=== PATIENT | male | born 1940 | race Caucasian/White ===

== ENCOUNTER 2019-08-02 10:12 | Inpatient (IN) | payer OTHER ==
[2019-08-02 10:47] LABS: Absolute Lymphocytes (CBC) 1.4 K/uL (0.7-4.9); Basophils % 0.7 % (0-1.3); Hematocrit 38.1 % (39.6-49.0); Lymphocytes % 21.4 % (15.3-44.8); MPV 9.1 fL (7.6-11.3); Protime INR 0.99; RBC Red Blood Cell Count 4.04 M/uL (4.33-5.43)
[2019-08-02 11:02] LABS: Albumin 3.2 g/dL (3.4-5.0); Bilirubin Direct 0.2 mg/dL (0-0.2); Bilirubin Total 0.6 mg/dL (0.2-1.0); Magnesium 2.3 mg/dL (1.8-2.4); Potassium 4.1 mmol/L (3.5-5.1); Protein, Total 7.1 g/dL (6.4-8.2); Troponin (Emerg Dept Use Only) 0.02 ng/mL (0.0-0.045)
--- NOTE | 2019-08-02 11:12 | RAD REPORT ---
EXAM DESCRIPTION: RAD - Chest Single View - 08/02/2019 10:58 am CLINICAL HISTORY: Left-sided chest pain COMPARISON: January 2012 chest film, January 2012 CT chest TECHNIQUE: AP portable chest image was obtained 1052 hours . FINDINGS: Lung volumes are very low. There is stranding in the left base was not present on prior im aging. Prior imaging showed large hiatal hernia with substantial portion of the stomach in the lower left chest. Patient could have progressive atelectasis or pneumonia in the left base. Heart size is similar to comparison. Fullness of the mediastinum not substantially different when ad justing for rotation. Mediastinum assessment is limited. No measurable pleural effusion and no pneumo thorax. No acute bony abnormality seen. No acute aortic findings suspected. IMPRESSION: Left base parenchymal stranding from atelectasis or pneumonia. Patient has history of large hiatal hernia with substantial amounts of stomach and bowel in the left lower pelvis. Low lung volumes limit left base assessment as well as mediastinum assessment.
[2019-08-02] MEDS ORDERED: ASPIRIN 81 MG CHEWABLE TABLET ONE (11:32)
[2019-08-02] MEDS ORDERED: NITROGLYCERIN 0.4 MG/TAB SL ONE (11:32)
--- NOTE | 2019-08-02 11:57 | EKG ---
Test Date: 2019-08-02 Test Time: 10:26:45 Web Architect: ESTHER MEASUREMENT RESULTS: Intervals: Rate: 55 AR: 236 QRSD: 136 QT: 452 QTc: 432 Pace: P: 40 AR: 236 QRS: -41 T: 106 INTERPRETIVE STATEMENTS: Sinus bradycardia with 1st degree AV block Left axis deviation Nonspecific intraventricular block T wave abnormality, consider lateral ischemia Abnormal ECG Compared to ECG 02/02/2012 06:45:04 First degree AV block now present Left-axis deviation now present T-wave abnormality now present Possible ischemia now present Sinus tachycardia no longer present Myocardial infarct finding no longer present Electronically Signed On 08-02-19 11:56:46 [employer] by Gilberto Harvey
--- NOTE | 2019-08-02 12:08 | ER ---
Nurse's Notes [facility] Name: Samuel Portillo Age: 78 yrs Sex: Male : 1940 Arrival Date: 08/02/2019 Time: 10:13 Bed 20 Private MD: Demond Gabriel C Diagnosis: Chest pain, unspecified Presentation: 08/02 10:15 Presenting complaint: Patient states: feels like he has indigestion, left side chest iw pain started this morning 0730, also c/o trouble breathing for past couple months, hx of CO with stent placement with Dr. Kraus. Transition of care: patient was not received from another setting of care. Onset of symptoms was August 02, 2019. Risk Assessment: Do you want to hurt yourself or someone else? Patient reports no desire to harm self or others. Initial Sepsis Screen: Does the patient meet any 2 criteria? No. Patient's initial sepsis screen is negative. Does the patient have a suspected source of infection? No. Patient's initial sepsis screen is negative. Care prior to arrival: None. 10:15 Method Of Arrival: Ambulatory iw 10:15 Acuity: WESLEY 2 iw Historical: - Allergies: 10:17 No Known Allergies; iw - PMHx: 10:17 Myocardial infarction; Hypertension; Hyperlipidemia; iw - PSHx: 10:17 left hip; Heart stents; iw - Immunization history:: Adult Immunizations not up to date. - Social history:: Smoking status: Patient/guardian denies using tobacco. - Ebola Screening: : Patient negative for fever greater than or equal to 101.5 degrees Fahrenheit, and additional compatible Ebola Virus Disease symptoms Patient denies exposure to infectious person Patient denies travel to an Ebola-affected area in the 21 days before illness onset No symptoms or risks identified at this time. - Family history:: not pertinent. - Hospitalizations: : No recent hospitalization is reported. Screenin:19 Abuse screen: Denies threats or abuse. Nutritional screening: No deficits noted. em Tuberculosis screening: No symptoms or risk factors identified. Fall Risk None identified. Assessment: 10:18 General: Appears in no apparent distress. comfortable, Behavior is calm, cooperative, em Denies fever. Pain: Complains of pain in chest Pain does not radiate. Pain began 4 hours ago. Neuro: Level of Consciousness is awake, alert, obeys commands, Oriented to person, place, time, situation, Appropriate for age. Cardiovascular: Reports chest pain, nausea, shortness of breath, Capillary refill < 3 seconds Patient's skin is warm and dry. Rhythm is sinus bradycardia with 1st degree heart block. Respiratory: Airway is patent Respiratory effort is even, unlabored, Respiratory pattern is regular, symmetrical, Denies cough. GI: Reports nausea. Derm: Skin is intact, is thin, Skin is dry, Skin is pink, Skin temperature is warm. Musculoskeletal: Capillary refill < 3 seconds, Range of motion: intact in all extremities. 13:17 Reassessment: Patient appears in no apparent distress at this time. Patient and/or em family updated on plan of care and expected duration. Pain level reassessed. Patient is alert, oriented x 3, equal unlabored respirations, skin warm/dry/pink. Patient states feeling better. Patient states symptoms have improved. 13:29 Reassessment: report called to SARITA Dominguez, reports room is not ready, will call when em room is available. Vital Signs: 10:18 BP 150 / 82; Pulse 50; Resp 16; Temp 97.4; Pulse Ox 100% on R/A; Weight 99.79 kg; iw Height 6 ft. 2 in. (187.96 cm); Pain 6/10; 11:01 BP 141 / 72; Pulse 49; Resp 18; Pulse Ox 99% on R/A; Pain 6/10; em 11:35 BP 134 / 74; Pulse 48; Resp 18; Pulse Ox 99% on R/A; Pain 6/10; em 13:18 BP 125 / 64; Pulse 46; Resp 18; Pulse Ox 99% on R/A; Pain 4/10; em 10:18 Body Mass Index 28.25 (99.79 kg, 187.96 cm) iw ED Course: 10:13 Patient arrived in ED. rg4 10:13 Demond Gabriel MD is Private Physician. rg4 10:16 Triage completed. iw 10:18 Rahul Jain MD is Attending Physician. rn 10:18 Patient maintains SpO2 saturation greater than 95% on room air. em 10:18 Arm band placed on. em 10:19 Kin Bansal LVN is Primary Nurse. em 10:19 Patient has correct armband on for positive identification. Placed in gown. Bed in low em position. Side rails up X2. Adult w/ patient. night monitor on. Pulse ox on. NIBP on. 10:32 Initial lab(s) drawn, by me, sent to lab. Inserted saline lock: 20 gauge in right em antecubital area, using aseptic technique. Blood collected. 10:33 EKG done, by camera repair technician. reviewed by Rahul Jain MD. at1 10:59 XRAY Chest (1 view) In Process Unspecified. EDMS 12:06 Demond Gabriel MD is Hospitalizing Provider. rn 12:30 called the clinical document improvement educator answering service to notify of the admission consult as eb requested by Dr. Gabriel. 13:19 No provider procedures requiring assistance completed. Patient admitted, IV remains in em place. Administered Medications: 11:39 Drug: Aspirin Chewable Tablet 324 mg Route: PO; em 12:20 Follow up: Response: No adverse reaction em 11:40 Drug: Nitroglycerin 0.4 mg Route: Sublingual; em 12:20 Follow up: Response: No adverse reaction; Pain is decreased em Outcome: 12:07 Decision to Hospitalize by Provider. rn 14:02 Admitted to Tele accompanied by tech, family with patient, via wheelchair, room 208, em with chart, Report called to SARITA Dominguez 14:02 Condition: good 14:02 Instructed on the need for admit, Demonstrated understanding of instructions. 14:02 Patient left the ED. em Signatures: Dispatcher [employer] EDWY Kin Bansal, DRINKING WATER TECHNICIAN DRINKING WATER TECHNICIAN em Reba Fairbanks, Rahul Galindo RN, MD MD rn Gonzales, Amanda, lead oracle developer EKG Tat1 Yadira Rizzo4 Lindsay Valentine
--- NOTE | 2019-08-02 12:08 | EDPHYS ---
Physician Documentation [facility] Name: Samuel Portillo Age: 78 yrs Sex: Male : 1940 Arrival Date: 08/02/2019 Time: 10:13 Bed 20 Private MD: Demond Gabriel C ED Physician Rahul Jain HPI: 08/02 12:01 This 78 yrs old Male presents to ER via Ambulatory with complaints of Chest rn Pain. 12:01 The patient or guardian reports chest pain that is located primarily in the substernal rn area, anterior chest wall. Onset: this morning. The pain does not radiate. Associated signs and symptoms: Pertinent negatives: abdominal pain, lightheadedness, nausea, near syncope, palpitations, shortness of breath, syncope, vomiting. The chest pain is described as dull. Duration: The patient or guardian reports a single episode, that is still ongoing. Modifying factors: The symptoms are alleviated by nothing. the symptoms are aggravated by nothing. Severity of pain: At its worst the pain was moderate in the emergency department the pain has improved. The patient has experienced a previous episode. Reports chest pain, dull, non-radiating, no fever/chills/cough/sob/abd pain. Feels somewhat similar to previous [place] in past. . Historical: - Allergies: 10:17 No Known Allergies; iw - PMHx: 10:17 Myocardial infarction; Hypertension; Hyperlipidemia; iw - PSHx: 10:17 left hip; Heart stents; iw - Immunization history:: Adult Immunizations not up to date. - Social history:: Smoking status: Patient/guardian denies using tobacco. - Ebola Screening: : Patient negative for fever greater than or equal to 101.5 degrees Fahrenheit, and additional compatible Ebola Virus Disease symptoms Patient denies exposure to infectious person Patient denies travel to an Ebola-affected area in the 21 days before illness onset No symptoms or risks identified at this time. - Family history:: not pertinent. - Hospitalizations: : No recent hospitalization is reported. ROS: 12:01 Constitutional: Negative for fever, chills, and weight loss, Eyes: Negative for injury, rn pain, redness, and discharge, Neck: Negative for injury, pain, and swelling, Cardiovascular: Negative for palpitations, and edema, Respiratory: Negative for shortness of breath, cough, wheezing, and pleuritic chest pain, Abdomen/GI: Negative for abdominal pain, nausea, vomiting, diarrhea, and constipation, MS/Extremity: Negative for injury and deformity, Skin: Negative for injury, rash, and discoloration, Neuro: Negative for headache, weakness, numbness, tingling, and seizure. Exam: 12:01 Constitutional: This is a well developed, well nourished patient who is awake, alert, rn and in no acute distress. Head/Face: Normocephalic, atraumatic. Eyes: Pupils equal round and reactive to light, extra-ocular motions intact. Lids and lashes normal. Conjunctiva and sclera are non-icteric and not injected. Cornea within normal limits. Periorbital areas with no swelling, redness, or edema. Cardiovascular: Regular rate and rhythm. No pulse deficits. Respiratory: No increased work of breathing, no retractions or nasal flaring. Abdomen/GI: soft, non-tender MS/ Extremity: Pulses equal, no cyanosis. Neurovascular intact. Full, normal range of motion. Equal circumference. Neuro: Awake and alert, GCS 15, oriented to person, place, time, and situation. Vital Signs: 10:18 BP 150 / 82; Pulse 50; Resp 16; Temp 97.4; Pulse Ox 100% on R/A; Weight 99.79 kg; iw Height 6 ft. 2 in. (187.96 cm); Pain 6/10; 11:01 BP 141 / 72; Pulse 49; Resp 18; Pulse Ox 99% on R/A; Pain 6/10; em 11:35 BP 134 / 74; Pulse 48; Resp 18; Pulse Ox 99% on R/A; Pain 6/10; em 13:18 BP 125 / 64; Pulse 46; Resp 18; Pulse Ox 99% on R/A; Pain 4/10; em 10:18 Body Mass Index 28.25 (99.79 kg, 187.96 cm) iw MDM: 10:18 Patient medically screened. rn 12:01 Differential diagnosis: acute myocardial infarction, acute pericarditis, anxiety, rn coronary artery disease chest wall pain, costochondritis, esophagitis, gastritis, gastroesophageal reflux disease (GERD), pleurisy, pneumonia, pneumothorax, stable angina, unstable angina. The patient was given aspirin in the Emergency Department. Data reviewed: vital signs, nurses notes, lab test result(s), EKG, radiologic studies, plain films, and as a result, I will admit patient. Counseling: I had a detailed discussion with the patient and/or guardian regarding: the historical points, exam findings, and any diagnostic results supporting the discharge/admit diagnosis, lab results, radiology results, the need for further work-up and treatment in the hospital. Medication response: Nitro x 1 partially relieved pain. Response to treatment: the patient's symptoms have mildly improved after treatment. Admission orders: after a detailed discussion of the patient's condition and case, the admit orders are written by me. ED course: Admitted to Nimesh Gabriel for chest pain, improved slightly with nitro, will admit for chest pain workup given 10 years since last stent and familiar. . 12:50 ED course: Cardiology consulted.. rn 08/02 10:29 Order name: Basic Metabolic Panel; Complete Time: 11: 08/02 10:29 Order name: CBC with Diff; Complete Time: 08/02 10:29 Order name: LFT's; Complete Time: : rn 08/02 10:29 Order name: Magnesium; Complete Time: : rn 08/02 10:29 Order name: NT PRO-BNP; Complete Time: : rn 08/02 10:29 Order name: PT-INR; Complete Time: : rn 08/02 10:29 Order name: Troponin (emerg Dept Use Only); Complete Time: 11: 08/02 10:29 Order name: XRAY Chest (1 view); Complete Time: 11: 08/02 10:29 Order name: EKG; Complete Time: 10 rn 08/02 10:29 Order name: Cardiac monitoring; Complete Time: rn 08/02 10:29 Order name: EKG - Nurse/Tech; Complete Time: rn 08/02 10:29 Order name: Lipase; Complete Time: : rn 08/02 10:29 Order name: IV Saline Lock; Complete Time: rn 08/02 10:29 Order name: Labs collected and sent; Complete Time: 08/02 10:29 Order name: O2 Per Protocol; Complete Time: 08/02 10:29 Order name: O2 Sat Monitoring; Complete Time: 10:32 rn Administered Medications: 11:39 Drug: Aspirin Chewable Tablet 324 mg Route: PO; em 12:20 Follow up: Response: No adverse reaction em 11:40 Drug: Nitroglycerin 0.4 mg Route: Sublingual; em 12:20 Follow up: Response: No adverse reaction; Pain is decreased em Disposition: 08/02/19 12:07 Hospitalization ordered by Demond Gabriel for Observation. Preliminary diagnosis is Chest pain, unspecified. - Bed requested for Telemetry/MedSurg (observation). - Status is Observation. em - Condition is Stable. - Problem is new. - Symptoms have improved. UTI on Admission? No Signatures: Dispatcher [employer] EDKin Cheatham, ENGINE ROOM OPERATOR ENGINE ROOM OPERATOR Reba Johnson RN RN iw Nieto, Roman, MD MD rn Botello, Elizabeth eb Corrections: (The following items were deleted from the chart) 12:49 12:07 Hospitalization Ordered by A Harvey SEWELL for Observation. Preliminary diagnosis is eb Chest pain, unspecified. Bed requested for Telemetry/MedSurg (observation). Status is Observation. Condition is Stable. Problem is new. Symptoms have improved. UTI on Admission? No. rn 14:02 12:49 08/02/2019 12:07 Hospitalization Ordered by A Harvey SEWELL for Observation. em Preliminary diagnosis is Chest pain, unspecified. Bed requested for Telemetry/MedSurg (observation). Status is Observation. Condition is Stable. Problem is new. Symptoms have improved. UTI on Admission? No. eb
[2019-08-02] MEDS ORDERED: ONDANSETRON 4 MG/2 ML VIAL IV PRN (13:53)
[2019-08-02 14:42] VITALS: BMI 28.9
[2019-08-02] MEDS ORDERED: PNEUMOCOCCAL VACCINE 0.5 ML IMVAC ONE (15:00)
[2019-08-02] MEDS ORDERED: MIDAZOLAM HCL 2 MG/2 ML INJ ONE ×2 (17:54→18:28)
[2019-08-02] MEDS ORDERED: HEPA 1000U/500MLS 1,000 UNIT/500 ML BAG IV ONE (17:54)
[2019-08-02] MEDS ORDERED: LIDOCAINE 1% MPF 30 ML VIAL ONE (17:55)
[2019-08-02] MEDS ORDERED: ATROPINE SULF 1 MG/10 ML SYR IV ONE (17:55)
[2019-08-02] MEDS ORDERED: FENTANYL CITR 100 MCG/2 ML ONE (17:55)
[2019-08-02] MEDS ORDERED: NA CHLORIDE 0.9% 0 ML ONE (17:55)
[2019-08-02] MEDS ORDERED: NA CHLORIDE 0.9% 500 ML ONE (18:05)
[2019-08-03 06:09] LABS: Absolute Lymphocytes (CBC) 1.3 K/uL (0.7-4.9); Basophils % 0.5 % (0-1.3); Hematocrit 35.2 % (39.6-49.0); Lymphocytes % 21.7 % (15.3-44.8); MPV 9.1 fL (7.6-11.3)
[2019-08-03 06:18] LABS: Potassium 4.8 mmol/L (3.5-5.1)
[2019-08-03] MEDS: ASPIRIN EC 81 MG TAB PO SCH (08:21)
[2019-08-03] MEDS ORDERED: METOPROLOL SUCCINATE 50 MG PO SCH (09:00)
[2019-08-03] MEDS ORDERED: HOME MED 1 EA UNK (Clopidogrel Bisulfate [Plavix*] 75 MG) PO SCH (09:00)
[2019-08-03] MEDS ORDERED: ATORVASTATIN CALCIUM 40 MG PO SCH (21:00)
[2019-08-03] MEDS ORDERED: AMLODIPINE 5 MG TAB PO SCH (21:00)
[2019-08-03] MEDS: APIXABAN 5 MG TABLET PO SCH (21:10)
--- NOTE | 2019-08-03 22:43 | HP ---
Date of Admission: 08/02/2019 Chief Complaint: Chest Pain. History Of Present Illness: This is a 78-year-old very pleasant male patient with prior history of m yocardial infarction, coronary artery disease and stent placement in 2011. After that, the patient h as done well. He continues to see his radiological health specialist, Dr. Kraus on regular basis. Patient reports th at today he has some indigestion type of feeling from time to time and feels like he has gas buildup and once he burps, his symptom tends to go away and that happens every now and then. Yesterday, he h ad similar type of feeling without any exertion and he was out of his house as he had gone to his son 's place and on his way back he stops at one of the gas station to corn picker some soda thinking that if he drinks that and starts burping that would help to alleviate his symptoms. After he came home, he continued to have this symptoms, did not get better, so the patient and his decided to come to emergency room because he had similar type of feeling, but lot worse and lot more intense in 2012 whe n he had his heart attack. Patient denies any radiation of this symptoms and the location of this di scomfort was in the center of his chest. Denies any associated nausea, vomiting, diaphoresis. No ti ngling, numbness of hands and no shortness of breath. After he was evaluated in the ER, his EKG did not show any acute changes and his initial cardiac enzyme was normal, but the second troponin came ba ck abnormal at 2.6. After the patient arrived in emergency room, he was given nitroglycerin sublingu al tablet and his symptoms got resolved and he has not had any recurrence of symptoms. Allergies: NO KNOWN ALLERGIES. Medications: Atorvastatin 40 mg at bedtime, clopidogrel 75 mg p.o. daily, losartan 25 mg p.o. daily, metoprolol succinate 50 mg 2 times a day, Nitrostat p.r.n. Review of Systems: Cardiovascular: As mentioned above. All other systems reviewed and negative. Past Medical History: Allergic rhinitis, type 2 diabetes mellitus, hypertension, hyperlipidemia, cor onary artery disease, history of myocardial infarction on January 31, 2012, diverticulosis, benign prost atic hypertrophy, elevated PSA, osteoarthritis at multiple sites, and anemia. Past Surgical History: Cataract surgery, tonsillectomy, coronary artery stent placement on 2, hernia repair, hip surgery. Family History: Father of myocardial infarction. Mother had coronary artery disease and diabet es. Brother committed suicide and sister details unknown. Social History: Negative for smoking. Use of alcohol: Occasional. Physical Examination: Vital Signs: Temperature 97.9, pulse 52, respiratory rate 16, blood pressure 100/53, oxygen saturati on 95%. Height 6 feet 2 inches, weight 225 pounds. General: Awake, alert, oriented, not in distress. HEENT: Head atraumatic, normocephalic. Conjunctivae nonerythematous. Sclerae white. Mouth, no thr ush or edema noted. Ears/Nose, no mass, lesion, discharge noted. Neck: Supple. No JVD, lymph nodes, bruit, thyromegaly noted. Lungs: Bilateral good equal air entry. Clear to auscultation. No rhonchi. No rales. Heart: Normal heart sounds, no murmur or gallop. Abdomen: Soft, bowel sounds normal. No guarding, rigidity, tenderness, mass, hepatosplenomegaly, dis tention, or bruit noted. Extremities: No leg edema. No calf tenderness. Skin: No rash, ulcer, cellulitis. Lymphatics: No lymph node enlargement in neck, supraclavicular, infraclavicular region. Neuro: No focal neurological deficit. Chest: Unremarkable. External Genitalia: Deferred. Rectal: Deferred. Laboratory Data: Yesterday's white count 6.6, hemoglobin 12.7, platelets 139. This morning, white c ount 5.9, hemoglobin 12, platelets 125. Yesterday, sodium 141, potassium 4.1, chloride 109, bicarb 2 8, BUN 18, creatinine 1.18, glucose 160. Liver function tests unremarkable. First troponin 0.02, se cond troponin 0.62, third troponin 2.60. Lipase 193. This morning, sodium 142, potassium 4.8, chlor jenn 111, bicarb 26, BUN 16, creatinine 0.89, glucose 110. Chest x-ray: Left base, pericardial stran ding likely from atelectasis, large hiatal hernia. EKG: Sinus bradycardia, first-degree AV block, l eft axis deviation, nonspecific intraventricular delay, T-wave abnormality consider local ischemia. Impression: 1.Blh-EF-zuruyrddx myocardial infarction. 2.Coronary artery disease. 3.Hypertension. 4.Type 2 diabetes mellitus. 5.Hyperlipidemia. 6.Diverticulosis. 7.Benign prostatic hypertrophy. 8.Anemia. 9.Thrombocytopenia. 10.Allergic rhinitis. Plan: Admit patient to hospital for further evaluation and management of this problem. Patient is a ppropriate for inpatient and is expected to spend 2 midnights in hospital. After patient's last trop onin yesterday evening came up to 2.6, I did communicate with radiological health specialist, Dr. Harvey who came out to evaluate the patient and decided to do emergent coronary angiogram and after the procedure was don e, he called and informed me that the patient's stent that was placed in 2011 was patent and there wa s no blockage or stenosis noted there and rest of the coronaries appeared normal. So, what we feel l juli probably what might have happened that either patient had coronary vasospasm or possibility of sm all tiny coronary branch might have occluded to cause this known STEMI type of clinical picture. In any case, he is clinically stable. At this point, he is on appropriate anti-platelet therapy, choles terol therapy as well as beta-james therapy and ARB. We will consider adding calcium channel block er like amlodipine as per my discussion with Dr. Harvey and will start that starting today. We will reduce his dose of metoprolol from 50 mg b.i.d. to once a day and I will get fasting lipid profile d one tomorrow morning and we will decide if his statin therapy, atorvastatin dose should be increased from 40 to 80 mg or not depending on this cholesterol test results. Meanwhile, he is currently medic ally stable. Ambulation was advised today. His right groin has a small dressing present. There is no evidence of any hematoma or swelling as I have examined that today. I will see him tomorrow omero lara for followup and we will possibly discharge him tomorrow depending on his condition. Details and plan of treatment discussed with patient. RODERICK/MODL Voice ID: [id number]
--- NOTE | 2019-08-03 22:56 | CON ---
Date of Consultation: 08/03/[address] Gabriel's service on 08/02/2019. I saw the patient on 08/03/2019. Reason For Consultation: Non-ST elevation myocardial infarction. History Of Present Illness: Mr. Portillo is a 78-year-old white male. He has had a history of hype rtension, dyslipidemia. In 2011 Dr. Kraus did an LAD stent on him and he has done well since then. Continues to have regular followup. Has not had any symptoms recently. Came in with substernal alivia st pain, pressure sensation, some diaphoresis. No nausea or vomiting. Denied PND, orthopnea, pedal edema, palpitations, or syncope. His initial troponin was 0.62. His BNP was 505. The rest of the b lood work was unremarkable. His EKG was nonspecific. Chest x-ray was negative. By the time I saw h im, he was asymptomatic. Allergies: NONE. Review of Systems: Negative. Social History: Negative. Family History: Noncontributory. Medications: At home include metoprolol, Plavix, Cozaar, Lipitor. Physical Examination: Vital Signs: Stable. He was afebrile. HEENT: Negative. Neck: Supple without any bruit, lymphadenopathy, JVD, or thyromegaly. Chest: Clear to auscultation and percussion. Cardiac: Revealed a regular rhythm and rate. No murmurs, gallops, or rubs. Abdomen: Benign. Extremities: Revealed no clubbing, cyanosis, or edema. Diagnostic Data: Stated earlier. Impression And Plan: 1.Mr. Portillo has had a history of coronary artery disease, status post LAD stent in [address] pain, abnormal troponin. I think I need to take him to the laborer wrecking and salvaging to perform a left heart radha terization with possible intervention. Patient understands the risks and the benefits of the procedu re and he agreed to proceed. 2.Hypertension, well controlled. 3.Dyslipidemia, well controlled. The case will be discussed further with Dr. Gabriel. HILDA/ROGER Voice ID: [id number] Report ID: [id number]
--- NOTE | 2019-08-03 23:05 | PN ---
Date of Progress Note: 08/03/2019 This evening nurse contacted me, informed me that on air sampling and monitoring patient had 1 minute episode o f atrial fibrillation/atrial flutter and heart rate of around 52 beats per minute and subsequently he was in atrial flutter with heart rate 56 beats per minute. Stat EKG was ordered, which did confirm atrial flutter with controlled heart rate. Patient was asymptomatic during this entire time. I did communicate with snow fence erector, Dr. Harvey, and he has suggested to discontinue Plavix and to start e ither Eliquis or Xarelto. We will continue aspirin along with this anticoagulation therapy. I will see him tomorrow for followup visit and possible discharge to go home if he is stable. RODERICK/MODL Voice ID: [id number] Report ID: [id number]
--- NOTE | 2019-08-04 00:02 | PN ---
Date of Progress Note: 08/03/2019 Mr. Portillo is 78, came in with a non-ST elevation myocardial infarction. Catheterization showed f airly normal coronaries with a patent LAD stent. His right groin today is intact. There is no hemat hany. He overnight had no further chest pain. It was thought that his PA was secondary to coronary s pasm or maybe occlusion of a very small blood vessel that we could not see. Nevertheless, Dr. Gabriel r educed his metoprolol dose. He put him on Norvasc, which I agree with. Apparently later on today, keerthi tomlinson developed atrial flutter with rate control. We will plan to put him on an anticoagulant, probably Eliquis or Xarelto. I will leave that up to Dr. Gabriel. I think we need to stop his Plavix, continue aspirin and the anticoagulant, but from my standpoint, he can go home on the August 04 and I will s ee him in the office in the next couple of weeks. HILDA/RGOER Voice ID: [id number] Report ID: [id number]
--- NOTE | 2019-08-04 00:42 | OP ---
Date of Procedure: 08/03/2019 Surgeon: Gilberto Harvey MD Auto Body Customizer: Awilda Mendoza. The patient was admitted to Dr. Gabriel on 08/02/2019. Indications: In for a [id number] myocardial infarction. The patient had a history of coronary artery disease status post LAD stent in 2011. Description Of Procedure: The patient was brought to the warehouse general laborer on 08/03/2019, to evaluate his cor onary anatomy. He was prepped and draped in the routine sterile fashion. He was given 2 mg of Verse d and 25 of fentanyl for IV sedation. A 6-Romanian sheath was introduced in the right common femoral a rtery successfully. Angiography there was normal. Angio-Seal was used to close the case. A Jovon catheter left and right were introduced to cannulate the left main and the right main respectively. His RCA was normal with some minimal plaquing. His left main was normal. His circumflex was normal with minor plaquing. His LAD had a proximal LAD stent, it was patent. LV-gram was done as well hitesh wing an ejection fraction about 50% to 55%. There were no complications. Blood loss was 5 mL. Tota l conscious sedation was 30 minutes. Assessment: Non-ST elevation myocardial infarction. Coronaries appeared to be normal. The stent in the LAD appeared to be normal. It is remotely possible that the patient had coronary spasm or may b e occluded a small tiny vessel that I could not visualize on angiography. Plan: The plan is for medical therapy. I discussed the case with Dr. Gabriel, maybe we can reduce his beta-james and put him on a calcium- channel james. The patient will remain in the hospital tonight and I will have Dr. Gabriel decide on further discharge planning later. HILDA/ROGER Voice ID: [id number] Report ID: [id number]
[2019-08-04] MEDS: ASPIRIN EC 81 MG TAB PO SCH (09:03)
[2019-08-04] MEDS: APIXABAN 5 MG TABLET PO SCH (09:03)
[2019-08-04 09:27] VITALS: O2SAT 99
[2019-08-04 13:43] VITALS: BP 99/57; TEMP 98.1
--- NOTE | 2019-08-05 04:34 | DS ---
Date of Discharge: 08/04/2019 Disposition: Discharged to go home. Physical Examination: HEENT: Unremarkable. Lungs: Clear to auscultation. Heart: Sounds normal. Abdomen: Soft, bowel sounds normal. No guarding, rigidity, tenderness, or distention. Extremities: No leg edema. GROIN: Right groin examination is unremarkable. There is no more dressing present. Puncture site n oted in the right groin area, but no evidence of any bleeding or any other concern. Discharge Medications And Instructions: 1.Continue all prior home medications except reduce dose of metoprolol succinate 50 mg, take 1 table t once a day instead of 1 tablet 2 times a day. 2.Discontinue Plavix, which is clopidogrel. 3.Start amlodipine 5 mg at bedtime. 4.Eliquis 5 mg every 12 hours. Discharge Diagnoses: 1.Non-ST elevation myocardial infarction. 2.Coronary artery disease. 3.Hypertension. 4.Hyperlipidemia. Followup: 1.Follow up at my office a week after next. 2.Follow up with dairy nutritionist in 2 weeks. Hospital Course: This is a 78-year-old male patient, who was admitted to the hospital after he prese nted to the emergency room with complaints of chest pain. Please see dictated H and P for more infor mation. Patient's initial troponin level was normal, but second and third troponin levels were abnor mal. The third troponin was 2.6. After I communicated with dairy nutritionist, Dr. Harvey, he decided to do emergent cardiac cath on him, which was done late evening of the admission and cardiac cath showe d that the stent that was placed in 2011 was patent, there was no evidence of any stenosis within the stent and the rest of the coronaries were normal. So, patient did not require any intervention. Ye sterday, patient had gone into atrial fibrillation and atrial flutter and he was asymptomatic, hemody namically stable. I talked to dairy nutritionist about it and Dr. Harvey suggested to discontinue Plavix and in place of Plavix, start him on anticoagulation therapy and Eliquis was started. I did explain all these details to the patient this morning and this morning, he was in sinus rhythm. Yesterday wh en he was in atrial fibrillation and atrial flutter, his heart rate was 52 to 56 beats per minute. P atient will be discharged in stable condition today with above-mentioned medications and instructions . RODERICK/MODL Voice ID: [id number] Report ID: [id number]
--- NOTE | 2019-08-05 11:46 | EKG ---
Test Date: 2019-08-04 Test Time: 00:18:49 Diploma Maker: RT-O MEASUREMENT RESULTS: Intervals: Rate: 49 CO: 232 QRSD: 128 QT: 520 QTc: 469 Portal: P: 22 CO: 232 QRS: -49 T: 132 INTERPRETIVE STATEMENTS: Marked sinus bradycardia with 1st degree AV block Left axis deviation Nonspecific intraventricular block Septal infarct, age undetermined T wave abnormality, consider anterolateral ischemia Abnormal ECG Compared to ECG 08/03/2019 18:21:43 First degree AV block now present Atrial flutter no longer present Myocardial infarct finding still present T-wave abnormality still present Possible ischemia still present Electronically Signed On 08-05-19 11:42:20 BOILER WASHER by Gilberto Harvey
--- NOTE | 2019-08-05 11:47 | EKG ---
Test Date: 2019-08-03 Test Time: 18:21:43 Automation Analyst: ILAN MEASUREMENT RESULTS: Intervals: Rate: 55 IL: QRSD: 128 QT: 474 QTc: 453 Rogers: P: IL: QRS: -51 T: 125 INTERPRETIVE STATEMENTS: Atrial flutter with variable AV block Left axis deviation Nonspecific intraventricular block Cannot rule out Anterior infarct, age undetermined T wave abnormality, consider lateral ischemia Abnormal ECG Compared to ECG 08/02/2019 10:26:45 Myocardial infarct finding now present Sinus bradycardia no longer present First degree AV block no longer present T-wave abnormality still present Possible ischemia still present Electronically Signed On 08-05-19 11:42:28 LINUX NETWORK SYSTEMS ADMINISTRATOR by Gilberto Harvey
--- NOTE | 2019-08-06 16:02 | PN ---
Date of Progress Note: 08/04/2019 Mr. Portillo had came in with [id number] myocardial infarction. Cardiac catheterization showe d normal coronaries with a patent stent in the LAD. I would presume that his IN was secondary to spa sm or an occlusion of a small vessel. He is now on a calcium channel james in addition to his usua l regimen. Dr. Gabriel started him on Eliquis yesterday for atrial flutter. He is asymptomatic. Rate controlled. No chest pain. He can go home today on his present regimen. I will see him in the offi ce in 2 weeks. HILDA/ROGER Voice ID: [id number] Report ID: [id number]
== END 2019-08-04 14:08 | disposition home or self-care (01) | DRG 282 ==
LOC: ER 10:12 → ERHOLD 12:10 → 2ND 13:19 → OBSVTOIN 08-04 08:40
PROVIDERS: ADMIT Internal Medicine; ATTEND Internal Medicine
PROC: 4A023N7 Measurement of Cardiac Sampling and Pressure, Left Heart, Percutaneous Approach (ICD-10-PCS; principal; 2019-08-03)
PROC: B201YZZ Plain Radiography of Multiple Coronary Arteries using Other Contrast (ICD-10-PCS; 2019-08-03)
PROC: B205YZZ Plain Radiography of Left Heart using Other Contrast (ICD-10-PCS; 2019-08-03)
DX: I21.4 Non-ST elevation (NSTEMI) myocardial infarction (principal); I25.10 Atherosclerotic heart disease of native coronary artery without angina pectoris; J30.9 Allergic rhinitis, unspecified; E11.9 Type 2 diabetes mellitus without complications; I10 Essential (primary) hypertension; E78.5 Hyperlipidemia, unspecified; K57.90 Diverticulosis of intestine, part unspecified, without perforation or abscess without bleeding; N40.0 Benign prostatic hyperplasia without lower urinary tract symptoms; M15.9 Polyosteoarthritis, unspecified; D64.9 Anemia, unspecified; D69.6 Thrombocytopenia, unspecified
CPT/HCPCS: 36415; 71045; 80048; 80061; 80076; 83690; 83735; 83880; 84484; 85025; 85610; 93005; 93458; 99285; C1760; C1893; G0378; J0583; J2250; J3010; J7040

== ENCOUNTER 2019-08-10 10:02 | Emergency (ER) | payer OTHER ==
[2019-08-10 10:34] LABS: Absolute Lymphocytes (CBC) 1.1 K/uL (0.7-4.9); Basophils % 0.3 % (0-1.3); Hematocrit 35.4 % (39.6-49.0); Lymphocytes % 11.2 % (15.3-44.8); RBC Red Blood Cell Count 3.76 M/uL (4.33-5.43)
[2019-08-10 10:37] LABS: Protime INR 1.12
[2019-08-10] MEDS ORDERED: ONDANSETRON 4 MG/2 ML VIAL ONE (10:44)
[2019-08-10] MEDS ORDERED: LIDOCAINE 1% MPF 5 ML VIAL ONE (10:44)
[2019-08-10] MEDS ORDERED: MORPHINE 4 MG/ML SYR ONE (10:44)
[2019-08-10 10:55] LABS: Bilirubin Direct 0.2 mg/dL (0-0.2); Bilirubin Total 0.7 mg/dL (0.2-1.0); Magnesium 2.1 mg/dL (1.8-2.4); Potassium 4.3 mmol/L (3.5-5.1); Troponin (Emerg Dept Use Only) 0.06 ng/mL (0.0-0.045)
--- NOTE | 2019-08-10 11:22 | RAD REPORT ---
EXAM DESCRIPTION: CT - Head C Spine Cap John Brannon - 08/10/2019 10:56 am CLINICAL HISTORY: Head and neck injury with chest and abdominal pain status post fall. Head and neck pain . TECHNIQUE: Computed axial tomography of the head and cervical spine was obtained Computed axial tomography of the chest, abdomen and pelvis was obtained. 100 cc Isovue-300 was given intravenously coronal and sagittal reconstruction was performed. All CT scans are performed using dose optimization technique as appropriate and may include automated exposure control or mA/KV adjustment according to patient size. COMPARISON: CT chest 2012 FINDINGS: Right supraorbital laceration. An intracranial bleed is not seen. The ventricles are normal in caliber. An extra-axial fluid collect ion is not noted. A cervical fracture is not seen. No dislocation is seen. Spondylosis is present A mediastinal hematoma is not noted. A pleural effusion is not present. A lung contusion is not seen. Mild chronic left lower lobe atelectasis. Unchanged thyroid goiter A large hiatal hernia is present. The gastric body lies superior to the gastric fundus consistent wit h a volvulus. It is unchanged in appearance from the 2012 exam. The liver, spleen, pancreas and adrenals appear unremarkable. Bilateral renal cysts. Small gallstone without gallbladder wall thickening Mild bladder wall thickening. Marked enlargement of the prostate gland. Right inguinal hernia repair. Left hip arthroplasty. Small left inguinal hernia Small umbilical hernia IMPRESSION: 1. No acute intracranial abnormality is seen 2. A cervical fracture is not visualized. If the patient continues have symptoms to suggest intracran ial/spinal cord pathology then MRI would be recommended. 3. No traumatic injury involving the chest, abdomen or pelvis is seen.
--- NOTE | 2019-08-10 11:25 | RAD REPORT ---
EXAM DESCRIPTION: Alana Single View08/10/2019 10:41 am CLINICAL HISTORY: Chest pain COMPARISON: August 02, 2019 FINDINGS: Large hiatal hernia with left basilar atelectasis The right lung appears clear The heart is mildly enlarged. Colon abuts the right hemidiaphragm
--- NOTE | 2019-08-10 13:47 | EKG ---
Test Date: 2019-08-10 Test Time: 11:32:22 Technical Applications Specialist: ESTHER MEASUREMENT RESULTS: Intervals: Rate: 54 CT: 232 QRSD: 138 QT: 456 QTc: 432 Stafford: P: 23 CT: 232 QRS: -35 T: 151 INTERPRETIVE STATEMENTS: Sinus bradycardia with 1st degree AV block Left axis deviation Nonspecific intraventricular block Cannot rule out Anterior infarct, age undetermined T wave abnormality, consider lateral ischemia Abnormal ECG Compared to ECG 08/04/2019 00:18:49 No significant changes Electronically Signed On 08-10-19 13:46:45 FORMULATION TECHNICIAN by Gilberto Harvey
--- NOTE | 2019-08-10 14:14 | ER ---
Nurse's Notes [facility] Name: Samuel Portillo Age: 78 yrs Sex: Male : 1940 Arrival Date: 08/10/2019 Time: 10:04 Bed 25 Private MD: Diagnosis: Syncope and collapse;Laceration without foreign body of unspecified part of head-right eyebrow;Low back pain Presentation: 08/10 10:07 Presenting complaint: EMS states: pt c/o left side pain started yesterday, this morning iw pain got so ba that he became nauseous and passed out, hit head on tile floor, laceration to right eyebrow, pt on eliquis, pt A\T\OX3 now. Care prior to arrival: Medication(s) given: Normal saline infusion, 500 mL, IV initiated. 20 GA, in the right antecubital area, Glucose check: 196. Mechanism of Injury: Fall from standing position. Trauma event details: Injury occurred in the [facility], Injury occurred: at home. Injury occurred: August 10, 2019. 10:07 Method Of Arrival: EMS: [facility] iw 10:07 Acuity: WESLEY 2 iw 10:16 Transition of care: patient was not received from another setting of care. Onset of iw symptoms was August 10, 2019. Risk Assessment: Do you want to hurt yourself or someone else? Patient reports no desire to harm self or others. Initial Sepsis Screen: Does the patient meet any 2 criteria? No. Patient's initial sepsis screen is negative. Does the patient have a suspected source of infection? No. Patient's initial sepsis screen is negative. Trauma Activation: Alert Physician: ED Physician; Name: Dr. Rust; Notified At: 09:58; Arrived At: 09:58 Physician: General Surgeon; Name: N/A; Notified At: 09:58; Arrived At: Specialty not needed Physician: Radiology; Name: Yuniel; Notified At: 09:58; Arrived At: 09:58 Physician: Respiratory; Name: N/A; Notified At: 09:58; Arrived At: Specialty not needed Physician: Lab; Name: N/A; Notified At: 09:58; Arrived At: Specialty not needed Historical: - Allergies: 10:14 No Known Allergies; iw - Home Meds: 10:14 Eliquis oral oral [Active]; Lisinopril Oral [Active]; Metoprolol Tartrate Oral [Active];iw - PMHx: 10:14 Hyperlipidemia; Hypertension; Myocardial infarction; iw - PSHx: 10:14 left hip; Heart stents; Hernia repair; iw - Immunization history: Last tetanus immunization:. Screenin:15 Abuse screen: Denies threats or abuse. Denies injuries from another. Tuberculosis iw screening: No symptoms or risk factors identified. Primary Survey: 10:14 NO uncontrolled hemorrhage observed. A: Airway: patent. Breathing/Chest: Respiratory iw pattern: regular, Respiratory effort: spontaneous. Circulation: Pulses: palpable right radial artery, left radial artery, left carotid pulse and right carotid pulse. Skin color: pink. Disability Alert. Exposure/Environment: All clothing and personal items were removed. Forensic evidence collection is not deemed to be indicated at this time. Items placed in patient belonging bag. There is no evidence of uncontrolled external bleeding. Obvious injury(ies) are noted at this time: laceration to right eyebrow. Secondary Survey: 10:18 Gastrointestinal: Abdomen is soft. : No signs and/or symptoms were reported regarding iw the genitourinary system. Musculoskeletal: Circulation, motion, and sensation intact. Range of motion: intact in all extremities. Injury Description: Laceration sustained to right eye and forehead. Assessment: 10:16 General: Appears in no apparent distress. Behavior is calm. Pain: Complains of pain in iw anterior aspect of left lateral abdomen Pain currently is 6 out of 10 on a pain scale. Neuro: Level of Consciousness is awake, alert, obeys commands, Oriented to person, place, time, situation, Moves all extremities. Full function Reports headache. Cardiovascular: Patient's skin is warm and dry. Respiratory: Respiratory effort is even, unlabored, Respiratory pattern is regular, symmetrical. GI: Abdomen is non-distended, Patient currently denies diarrhea, nausea, vomiting. Derm: Skin is fragile. Musculoskeletal: Range of motion: intact in all extremities. Injury Description: Laceration sustained to forehead and right eye is full thickness, was sustained less than 30 minutes ago. A dressing was applied. 11:00 Reassessment: Patient appears in no apparent distress at this time. Patient and/or em family updated on plan of care and expected duration. Pain level reassessed. Patient is alert, oriented x 3, equal unlabored respirations, skin warm/dry/pink. 12:10 Reassessment: Patient appears in no apparent distress at this time. Patient and/or em family updated on plan of care and expected duration. Pain level reassessed. Patient is alert, oriented x 3, equal unlabored respirations, skin warm/dry/pink. provider at bedside suturing pt, rates pain 2/10 Patient states feeling better. 13:55 Reassessment: ambulated to restroom, about 50 feet, tolerated well, denies dizziness or em SOB, given ice water and sandwich. Vital Signs: 10:15 BP 123 / 67; Pulse 61; Resp 16; Temp 98.2; Pulse Ox 97% on R/A; Weight 102.06 kg; iw Height 6 ft. 2 in. (187.96 cm); 11:00 BP 128 / 66; Pulse 59; Resp 18; Pulse Ox 99% on R/A; Pain 6/10; em 12:08 BP 122 / 68; Pulse 53; Resp 18; Pulse Ox 95% on R/A; Pain 3/10; em 13:21 BP 124 / 71; Pulse 52; Resp 17 S; Pulse Ox 95% on R/A; ca1 14:30 BP 115 / 52; Pulse 54; Resp 17 S; Pulse Ox 97% on R/A; ca1 10:15 Body Mass Index 28.89 (102.06 kg, 187.96 cm) iw Alejandro Coma Score: 10:15 Eye Response: spontaneous(4). Verbal Response: oriented(5). Motor Response: obeys iw commands(6). Total: 15. Trauma Score (Adult): 10:15 Eye Response: spontaneous(1); Verbal Response: oriented(1); Motor Response: obeys iw commands(2); Systolic BP: > 89 mm Hg(4); Respiratory Rate: 10 to 29 per min(4); Alejandro Score: 15; Trauma Score: 12 11:00 Eye Response: spontaneous(1); Verbal Response: oriented(1); Motor Response: obeys em commands(2); Systolic BP: > 89 mm Hg(4); Respiratory Rate: 10 to 29 per min(4); [place] Score: 15; Trauma Score: 12 12:08 Eye Response: spontaneous(1); Verbal Response: oriented(1); Motor Response: obeys em commands(2); Systolic BP: > 89 mm Hg(4); Respiratory Rate: 10 to 29 per min(4); Alejandro Score: 15; Trauma Score: 12 ED Course: 10:04 Patient arrived in ED. em1 10:06 Kin Bansal LVN is Primary Nurse. em 10:13 Triage completed. iw 10:16 Patient has correct armband on for positive identification. iw 10:16 Arm band placed on. iw 10:16 Maintain EMS IV. Dressing intact. Good blood return noted. Site clean \T\ dry. Gauge \T\ iw site: 20 RAC. Patient maintains SpO2 saturation greater than 95% on room air. Thermoregulation: warm blanket given to patient. 10:27 Iraj Farley NP is PHCP. kdr 10:28 Gino Rust MD is Attending Physician. kdr 10:30 Troponin (emerg Dept Use Only) Sent. em 10:30 Basic Metabolic Panel Sent. em 10:30 CBC with Diff Sent. em 10:30 LFT's Sent. em 10:30 Magnesium Sent. em 10:30 NT PRO-BNP Sent. em 10:30 PT-INR Sent. em 10:39 XRAY Chest (1 view) In Process Unspecified. EDMS 10:59 Head C Spine Cap W Con In Process Unspecified. EDMS 13:57 Urine collected: clean catch specimen, clear, derick colored. jp3 13:57 Urine Microscopic Only Sent. jp3 14:58 No provider procedures requiring assistance completed. IV discontinued, intact, em bleeding controlled, No redness/swelling at site. Pressure dressing applied. Administered Medications: 11:24 Drug: Zofran 4 mg Route: IVP; Site: right antecubital; iw 12:14 Follow up: Response: No adverse reaction em 11:26 Drug: morphine 4 mg {Note: RASS-0.} Route: IVP; Site: right antecubital; iw 12:14 Follow up: Response: No adverse reaction; Marked relief of symptoms; Pain is decreased; em RASS: Alert and Calm (0) 12:13 Drug: Lidocaine (1 %) 5 mg {Note: administered by RENAE Galo.} Route: Infiltration; em Site: wound; 12:45 Follow up: Response: No adverse reaction; Marked relief of symptoms; Pain is decreased em Outcome: 14:12 Discharge ordered by . pm1 14:58 Discharged to home via wheelchair, with family. em 14:58 Condition: good 14:58 Discharge instructions given to patient, family, Instructed on discharge instructions, follow up and referral plans. medication usage, wound care, Demonstrated understanding of instructions, follow-up care, medications, wound care, Prescriptions given X 1. 15:00 Patient left the ED. em Signatures: Dispatcher [employer] EDMS Gino Rust MD MD kdr Kni Bansal, EVS TECH EVS TECH em Reba Fairbanks, RN RN Gagan Lott em1 Iraj Farley NP BEEF TRIMMER pm1 Kd Vu jp3 Breonna Crowell RN RN ca1
--- NOTE | 2019-08-10 14:15 | EDPHYS ---
Physician Documentation [facility] Name: Samuel Portillo Age: 78 yrs Sex: Male : 1940 Arrival Date: 08/10/2019 Time: 10:04 Bed 25 Private MD: ED Physician Gino Rust HPI: 08/10 10:36 This 78 yrs old Male presents to ER via EMS with complaints of Fall Injury, pm1 Head Injury-Adult, Syncope. 10:36 Details of fall: The patient fell from seated position, out of a chair. Onset: The pm1 symptoms/episode began/occurred just prior to arrival. Associated injuries: The patient sustained injury to the head, laceration, of the inner aspect of right eyebrow and middle aspect of right eyebrow. The patient has not experienced similar symptoms in the past. The patient has been recently seen by a physician: with different complaint(s), Was admitted on 08/02/2019 for chest pain. Stents 7 years ago. Cardiac catheterization was performed and informed that his stent is as good as if new. Patient without any chest pain, shortness of breath. Patient with onset of left lower back pain since yesterday. Was sitting on a stool this AM getting ready to come to the ER when he had an episode of left lower back pain that apparently caused him to pass out and hit the floor. Presenting with laceration to right eyebrow and abrasion to left thumb. Historical: - Allergies: 10:14 No Known Allergies; iw - Home Meds: 10:14 Eliquis oral oral [Active]; Lisinopril Oral [Active]; Metoprolol Tartrate Oral [Active];iw - PMHx: 10:14 Hyperlipidemia; Hypertension; Myocardial infarction; iw - PSHx: 10:14 left hip; Heart stents; Hernia repair; iw - Immunization history: Last tetanus immunization:. ROS: 10:36 Constitutional: Negative for fever, chills, and weight loss, Eyes: Negative for injury, pm1 pain, redness, and discharge, ENT: Negative for injury, pain, and discharge, Neck: Negative for injury, pain, and swelling. 10:36 Respiratory: Negative for shortness of breath, cough, wheezing, and pleuritic chest pain, Abdomen/GI: Negative for abdominal pain, nausea, vomiting, diarrhea, and constipation, Back: Negative for injury and pain. 10:36 Neuro: Negative for headache, weakness, numbness, tingling, and seizure. 10:36 Cardiovascular: Negative for chest pain, edema, palpitations. 10:36 MS/extremity: Positive for abrasion, of the left thumb, Negative for decreased range of motion, deformity, ecchymosis. 10:36 Skin: Positive for laceration(s), of the middle aspect of right eyebrow and inner aspect of right eyebrow. Exam: 10:36 Constitutional: This is a well developed, well nourished patient who is awake, alert, pm1 and in no acute distress. 10:36 Eyes: Pupils equal round and reactive to light, extra-ocular motions intact. Lids and lashes normal. Conjunctiva and sclera are non-icteric and not injected. Cornea within normal limits. Periorbital areas with no swelling, redness, or edema. ENT: Nares patent. No nasal discharge, no septal abnormalities noted. Tympanic membranes are normal and external auditory canals are clear. Oropharynx with no redness, swelling, or masses, exudates, or evidence of obstruction, uvula midline. Mucous membranes moist. Neck: Trachea midline, no thyromegaly or masses palpated, and no cervical lymphadenopathy. Supple, full range of motion without nuchal rigidity, or vertebral point tenderness. No Meningismus. Chest/axilla: Normal chest wall appearance and motion. Nontender with no deformity. No lesions are appreciated. Cardiovascular: Regular rate and rhythm with a normal S1 and S2. No gallops, murmurs, or rubs. Normal PMI, no JVD. No pulse deficits. Respiratory: Lungs have equal breath sounds bilaterally, clear to auscultation and percussion. No rales, rhonchi or wheezes noted. No increased work of breathing, no retractions or nasal flaring. Abdomen/GI: Soft, non-tender, with normal bowel sounds. No distension or tympany. No guarding or rebound. No evidence of tenderness throughout. 10:36 MS/ Extremity: Pulses equal, no cyanosis. Neurovascular intact. Full, normal range of motion. 10:36 Head/face: Noted is no obvious of injury or deformity except a laceration(s), that is deep, of the middle aspect of right eyebrow and inner aspect of right eyebrow. 10:36 Back: normal spinal alignment noted, vertebral tenderness, is not appreciated, muscle spasm, is appreciated in the left low back. 10:36 Skin: injury, abrasion(s), small abrasion noted, of the left thumb. 10:36 Neuro: Orientation: is normal, Mentation: is normal, Motor: is normal, moves all fours, strength is normal, strength is 5/5 in all extremities, Sensation: is normal, no obvious gross deficits. Vital Signs: 10:15 BP 123 / 67; Pulse 61; Resp 16; Temp 98.2; Pulse Ox 97% on R/A; Weight 102.06 kg; iw Height 6 ft. 2 in. (187.96 cm); 11:00 BP 128 / 66; Pulse 59; Resp 18; Pulse Ox 99% on R/A; Pain 6/10; em 12:08 BP 122 / 68; Pulse 53; Resp 18; Pulse Ox 95% on R/A; Pain 3/10; em 13:21 BP 124 / 71; Pulse 52; Resp 17 S; Pulse Ox 95% on R/A; ca1 14:30 BP 115 / 52; Pulse 54; Resp 17 S; Pulse Ox 97% on R/A; ca1 10:15 Body Mass Index 28.89 (102.06 kg, 187.96 cm) iw Alejandro Coma Score: 10:15 Eye Response: spontaneous(4). Verbal Response: oriented(5). Motor Response: obeys iw commands(6). Total: 15. Trauma Score (Adult): 10:15 Eye Response: spontaneous(1); Verbal Response: oriented(1); Motor Response: obeys iw commands(2); Systolic BP: > 89 mm Hg(4); Respiratory Rate: 10 to 29 per min(4); Alejandro Score: 15; Trauma Score: 12 11:00 Eye Response: spontaneous(1); Verbal Response: oriented(1); Motor Response: obeys em commands(2); Systolic BP: > 89 mm Hg(4); Respiratory Rate: 10 to 29 per min(4); Alejandro Score: 15; Trauma Score: 12 12:08 Eye Response: spontaneous(1); Verbal Response: oriented(1); Motor Response: obeys em commands(2); Systolic BP: > 89 mm Hg(4); Respiratory Rate: 10 to 29 per min(4); Alejandro Score: 15; Trauma Score: 12 Laceration: 12:39 Wound Repair of 4cm ( 1.6in ) subcutaneous laceration to inner aspect of right eyebrow pm1 and middle aspect of right eyebrow. Irregularly shaped.. Distal neuro/vascular/tendon intact. Anesthesia: Local anesthetic administered with 2 mls of 1% lidocaine. Wound prep: Extensive cleansing with hibiclenz by me, Wound irrigation with saline by me, Wound explored extensively, Copious irrigation. Skin closed with 9 5-0 Prolene using simple sutures and sterile technique. Subcutaneous tissue closed using simple sutures and sterile technique. Dressed with Neosporin. Patient tolerated well. MDM: 11:05 Patient medically screened. pm1 11:30 Physician consultation: Demond Gabriel MD Wants evaluation by attending MD and v/s on EMS pm1 arrival. 11:40 Data reviewed: vital signs. Data interpreted: Pulse oximetry: on room air is 97 %. pm1 Interpretation: normal. 12:41 ED course: EMS v/s obtained from human service specialist who brought the patient into the ER: 934 pm1 103/54 68 bpm - supine. 0941 100/65 55 bpm - standing. 0947 120/73 57 bpm - supine. 13:12 Physician consultation: A Harvey SEWELL Patient was evaluated by Dr. Rust. Patient can be pm1 discharged to home with pain medication and follow up with PCP. Informed Dr. Gabriel of evaluation and impression and V/S on EMS arrival. Will follow up with the patient in the office. Has appointment on Tuesday. . 14:10 Counseling: I had a detailed discussion with the patient and/or guardian regarding: the pm1 historical points, exam findings, and any diagnostic results supporting the discharge/admit diagnosis, lab results, radiology results, the need for outpatient follow up, to return to the emergency department if symptoms worsen or persist or if there are any questions or concerns that arise at home, suture removal in 4-5 days. 08/10 10:21 Order name: Basic Metabolic Panel; Complete Time: 11:08/10 10:21 Order name: CBC with Diff; Complete Time: :08/10 10:21 Order name: LFT's; Complete Time: :08/10 10:21 Order name: Magnesium; Complete Time: 11:05 la08/10 10:21 Order name: NT PRO-BNP; Complete Time: 11:05 la08/10 10:21 Order name: PT-INR; Complete Time: 11:05 08/10 10:21 Order name: XRAY Chest (1 view); Complete Time: 11:39 la08/10 10:21 Order name: Troponin (emerg Dept Use Only); Complete Time: 11:05 la08/10 10:25 Order name: Head C Spine Cap W Con; Complete Time: 11:26 EDMS 08/10 10:31 Order name: Urine Microscopic Only; Complete Time: 14:38 la08/10 14:04 Order name: Urine Dipstick--Ancillary (enter results); Complete Time: 14:53 1 08/10 10:21 Order name: EKG; Complete Time: 10:23 la08/10 10:21 Order name: Cardiac monitoring; Complete Time: 11:17 la08/10 10:21 Order name: EKG - Nurse/Tech; Complete Time: 11:30 08/10 10:21 Order name: IV Saline Lock; Complete Time: 10:30 08/10 10:21 Order name: Labs collected and sent; Complete Time: 10:30 08/10 10:21 Order name: O2 Per Protocol; Complete Time: 10:31 08/10 10:21 Order name: O2 Sat Monitoring; Complete Time: 10:31 la08/10 10:31 Order name: Urine Dipstick-Ancillary (obtain specimen); Complete Time: 13:55 08/10 10:31 Order name: Suture Tray at Bedside; Complete Time: 11:16 la1 Administered Medications: 11:24 Drug: Zofran 4 mg Route: IVP; Site: right antecubital; iw 12:14 Follow up: Response: No adverse reaction em 11:26 Drug: morphine 4 mg {Note: RASS-0.} Route: IVP; Site: right antecubital; iw 12:14 Follow up: Response: No adverse reaction; Marked relief of symptoms; Pain is decreased; em RASS: Alert and Calm (0) 12:13 Drug: Lidocaine (1 %) 5 mg {Note: administered by RENAE Galo.} Route: Infiltration; em Site: wound; 12:45 Follow up: Response: No adverse reaction; Marked relief of symptoms; Pain is decreased em Disposition: 08/10/19 14:12 Discharged to Home. Impression: Syncope and collapse, Laceration without foreign body of unspecified part of head - right eyebrow, Low back pain. - Condition is Stable. - Discharge Instructions: Back Pain, Adult, Facial Laceration, Musculoskeletal Pain, Syncope. - Prescriptions for Tylenol- Codeine #3 300-30 mg Oral Tablet - take 2 tablets by ORAL route every 6 hours As needed; 20 tablet. - Medication Reconciliation Form, Thank You Letter, Antibiotic Education, Prescription Opioid Use form. - Follow up: Emergency Department; When: As needed; Reason: Worsening of condition. Follow up: Private Physician; When: 2 - 3 days; Reason: Recheck today's complaints, Continuance of care, Re-evaluation by your physician. - Problem is new. - Symptoms have improved. Addendum: 08/13/2019 06:59 Co-signature as Attending Physician, Gino Rust MD I agree with the assessment and k dr plan of care. Signatures: Dispatcher [employer] [facility] Gino Rust MD MD [facility] Kin Bansal, STEEL MELTER STEEL MELTER em Reba Fairbanks, SARITA RN iw Yan Hunter, PRACTICAL NURSING TEACHER-C PRACTICAL NURSING TEACHER-Cla1 Iraj Farley NP ADVERTISING AGENCY MANAGER pm1 Corrections: (The following items were deleted from the chart) 08/10 10:25 10:10 Head C Spine MPR Wo Con+CT.RAD.BRZ ordered. [facility] 13:36 12:39 Wound Repair of 4cm ( 1.6in ) subcutaneous laceration to inner aspect of right pm1 eyebrow and middle aspect of right eyebrow. Irregularly shaped.. Distal neuro/vascular/tendon intact. Anesthesia: Local anesthetic administered with 2 mls of 1% lidocaine. Wound prep: Extensive cleansing with hibiclenz by fl, Wound irrigation with saline by fl, Wound explored extensively, Copious irrigation. Skin closed with 9 5-0 Prolene using simple sutures and sterile technique. Dressed with Neosporin. Patient tolerated well. pm1 15:00 14:12 08/10/2019 14:12 Discharged to Home. Impression: Syncope and collapse; Laceration em without foreign body of unspecified part of head - right eyebrow; Low back pain. Condition is Stable. Forms are Medication Reconciliation Form, Thank You Letter, Antibiotic Education, Prescription Opioid Use. Follow up: Emergency Department; When: As needed; Reason: Worsening of condition. Follow up: Private Physician; When: 2 - 3 days; Reason: Recheck today's complaints, Continuance of care, Re-evaluation by your physician. Problem is new. Symptoms have improved. pm1
[2019-08-10 14:34] LABS: Urine Bacteria <20 /HPF (NONE SEEN); Urine Culture Reflex Order NOT NEEDED; Urine RBC <5 /HPF (NONE SEEN)
[2019-08-10 14:48] LABS: Urine Blood NEGATIVE (NEG); Urine Glucose NEGATIVE (NEG); Urine Protein NEGATIVE (NEG); Urine pH 5.5 (5.0-7.0)
[2019-08-10 15:41] VITALS: TEMP 98.2
[2019-08-10 15:47] VITALS: BP 115/52; O2SAT 97
== END 2019-08-10 15:00 | disposition home or self-care (01) ==
LOC: ER 10:02
PROC: 0JQ10ZZ Repair Face Subcutaneous Tissue and Fascia, Open Approach (ICD-10-PCS; principal; 2019-08-10)
DX: S01.111A Laceration without foreign body of right eyelid and periocular area, initial encounter (principal); M54.5 Low back pain; W07.XXXA Fall from chair, initial encounter; Y93.89 Activity, other specified; Y92.9 Unspecified place or not applicable; I10 Essential (primary) hypertension; E78.5 Hyperlipidemia, unspecified; I25.2 Old myocardial infarction; Z79.01 Long term (current) use of anticoagulants; Z95.818 Presence of other cardiac implants and grafts
CPT/HCPCS: 93005; 85025; 80048; 36415; 83735; 85610; 80076; 84484; 83880; 70450; 72125; 71260; 74177; 71045; 96375; 96374; 99284; 12013; Q9967; J2405; 81003; 81015

== ENCOUNTER 2022-03-17 12:14 | Emergency (ER) | payer OTHER ==
[2022-03-17 13:16] LABS: Absolute Lymphocytes (CBC) 0.9 K/uL (0.7-4.9); Hematocrit 35.1 % (39.6-49.0); Lymphocytes % 20.9 % (15.3-44.8); MCV 93.7 fL (80-100); MPV 8.8 fL (7.6-11.3); RBC Red Blood Cell Count 3.75 M/uL (4.33-5.43)
[2022-03-17 13:30] LABS: Potassium 4.2 mmol/L (3.5-5.1); Troponin High Sensitivity 26.4 pg/mL (<58.9)
[2022-03-17 13:37] LABS: Albumin 3.3 g/dL (3.4-5.0); Bilirubin Total 0.5 mg/dL (0.2-1.0); Potassium 4.2 mmol/L (3.5-5.1); Protein, Total 8.1 g/dL (6.4-8.2)
[2022-03-17 13:41] LABS: SARS-CoV-2 Antigen Rapid Res Positive (Negative)
--- NOTE | 2022-03-17 14:13 | RAD REPORT ---
EXAM DESCRIPTION: RAD - Chest Single View - 03/17/2022 1:33 pm CLINICAL HISTORY: PAIN, hypotension COMPARISON: Portable 08/10/2011 TECHNIQUE: AP portable chest image was obtained 03/17/2022 1:33 pm . FINDINGS: A lung volumes are low accentuating the baseline prominent interstitial pattern. Bibasilar atelectasis is present. Left hemidiaphragm is poorly defined though a similar appearance was seen pr eviously. Hiatal hernia is present. Acute failure or volume overload is doubtful. Heart size normal f or shallow inspiration portable exam. No measurable pleural effusion and no pneumothorax. No acute guilelrmo ny abnormality seen. No acute aortic findings suspected. IMPRESSION: No acute cardiopulmonary process. Chronic interstitial pattern matches prior imaging.
--- NOTE | 2022-03-17 14:36 | RAD REPORT ---
EXAM DESCRIPTION: CT - Abdomen Pelvis W Contrast - 03/17/2022 1:56 pm CLINICAL HISTORY: Abdominal pain, acute, nonlocalized COMPARISON: No comparisons TECHNIQUE: Biphasic, helical CT imaging of the abdomen and pelvis was performed following 100 ml non -ionic IV contrast. No oral contrast administered. All CT scans are performed using dose optimization technique as appropriate and may include automated exposure control or mA/KV adjustment according to patient size. FINDINGS: No acute pleural or parenchymal finding. No pericardial effusion. Patient has elevated lef t hemidiaphragm as well as a moderately large hiatal hernia. Almost all of the stomach resides within the hernia and left hemidiaphragm elevation. The liver, spleen, and pancreas show no suspicious findings. A few punctate 3 mm sized gallstones are present layering along the dependent portion the gallbladder. No active gallbladder process. No duct stone or biliary tree abnormality evident. Symmetric renal function is seen with no hydronephrosis or suspicious renal mass. Patient has bilater al parapelvic cysts up to 2 cm in size. There is a 4.3 centimeter simple cyst lower pole of the right kidney with an exophytic 2.8 centimeter cyst posterior mid right kidney. No pyelonephritis or acute parenchymal process. Bladder is mostly contracted limiting evaluation. Furthermore, there is a large lobulated prostate gland projects into the bladder base. This creates a lobulated contour to the floo r of the bladder. Entire pelvic floor assessment is limited due to spray artifact from left hip prost hesis. No adrenal abnormalities. No focal gastric abnormality seen. Small bowel is unremarkable. No appendicitis findings. Air, fluid and stool are scattered in nondilated colon. An acute colon process is not seen. Sigmoid colon is tor tuous and redundant extending to the anterior mid abdomen level. No free air, free fluid or inflammatory stranding. No mass or bulky lymphadenopathy. A large fat f illed left inguinal hernia is present. Right inguinal hernia surgical clips are present. No suspicious bony findings. Prominent disc and bone degenerative changes are present. No pathologic process identified. IMPRESSION: Contrast enhanced CT abdomen and pelvis showing no acute or emergent finding. Nonacute findings are detailed in the body of the report.
[2022-03-17] MEDS ORDERED: BEBTELOVIMAB 175 MG/2 ML VIAL IV ONE (15:18)
[2022-03-17] MEDS ORDERED: NA CHLORIDE 0.9% 500 ML ONE (15:21)
--- NOTE | 2022-03-17 15:37 | EDPHYS ---
Physician Documentation [facility] Name: Samuel Portillo Age: 81 yrs Sex: Male : 1940 Arrival Date: 03/17/2022 Time: 12:19 Bed 16 Private MD: Demond Gabriel C ED Physician Kuldeep Persaud HPI: 03/17 15:39 This 81 yrs old Male presents to ER via Ambulatory with complaints of Blood Pressure snw Problem. 15:39 pt had some orthostatic dizziness yesterday and some frequency and urgency. Saw PCP, snw Dr. Gabriel, today. Pt sent to ED for eval for hypotension in office. +SARS result in ED. Onset: The symptoms/episode began/occurred suddenly, yesterday. Severity of symptoms: At their worst the symptoms were mild. The patient has not experienced similar symptoms in the past. The patient has been recently seen by a physician: the patient's primary care provider, Dr. Gabriel. Historical: - Allergies: 12:39 No Known Allergies; ld1 - PMHx: 12:39 Hyperlipidemia; Hypertension; Myocardial infarction; ld1 - PSHx: 12:39 Hip replacement; ld1 - Immunization history:: Adult Immunizations up to date, Client reports receiving the 2nd dose of the Covid vaccine. - Social history:: Smoking status: Patient denies any tobacco usage or history of. Patient/guardian denies using alcohol. ROS: 15:40 Constitutional: Negative for fever, chills, and weight loss, Eyes: Negative for injury, snw pain, redness, and discharge, ENT: Negative for injury, pain, and discharge, Neck: Negative for injury, pain, and swelling, Cardiovascular: Negative for chest pain, palpitations, and edema, Respiratory: Negative for shortness of breath, cough, wheezing, and pleuritic chest pain, Abdomen/GI: Negative for abdominal pain, nausea, vomiting, diarrhea, and constipation, Back: Negative for injury and pain, : Negative for injury, bleeding, discharge, and swelling, + frequency, urgency MS/Extremity: Negative for injury and deformity, Skin: Negative for injury, rash, and discoloration, Psych: Negative for depression, anxiety, suicide ideation, homicidal ideation, and hallucinations. 15:40 Neuro: Positive for dizziness. Exam: 15:41 Constitutional: This is a well developed, well nourished patient who is awake, alert, snw and in no acute distress. Head/Face: Normocephalic, atraumatic. Eyes: Pupils equal round and reactive to light, extra-ocular motions intact. Lids and lashes normal. Conjunctiva and sclera are non-icteric and not injected. Cornea within normal limits. Periorbital areas with no swelling, redness, or edema. ENT: Nares patent. No nasal discharge, no septal abnormalities noted. Tympanic membranes are normal and external auditory canals are clear. Oropharynx with no redness, swelling, or masses, exudates, or evidence of obstruction, uvula midline. Mucous membranes moist. Neck: Trachea midline, no thyromegaly or masses palpated, and no cervical lymphadenopathy. Supple, full range of motion without nuchal rigidity, or vertebral point tenderness. No Meningismus. Chest/axilla: Normal chest wall appearance and motion. Nontender with no deformity. No lesions are appreciated. Cardiovascular: Regular rate and rhythm with a normal S1 and S2. No gallops, murmurs, or rubs. Normal PMI, no JVD. No pulse deficits. Respiratory: Lungs have equal breath sounds bilaterally, clear to auscultation and percussion. No rales, rhonchi or wheezes noted. No increased work of breathing, no retractions or nasal flaring. Abdomen/GI: Soft, non-tender, with normal bowel sounds. No distension or tympany. No guarding or rebound. No evidence of tenderness throughout. Back: No spinal tenderness. No costovertebral tenderness. Full range of motion. Skin: Warm, dry with normal turgor. Normal color with no rashes, no lesions, and no evidence of cellulitis. MS/ Extremity: Pulses equal, no cyanosis. Neurovascular intact. Full, normal range of motion. Neuro: Awake and alert, GCS 15, oriented to person, place, time, and situation. Cranial nerves II-XII grossly intact. Motor strength 5/5 in all extremities. Sensory grossly intact. Cerebellar exam normal. Normal gait. Psych: Awake, alert, with orientation to person, place and time. Behavior, mood, and affect are within normal limits. Vital Signs: 12:38 BP 106 / 62; Pulse 60; Resp 18; Temp 97.0(TE); Pulse Ox 98% on R/A; Weight 101.15 kg; ld1 Height 6 ft. 2 in. (187.96 cm); Pain 0/10; 14:30 BP 121 / 62; Pulse 54; Resp 22 S; Pulse Ox 98% on R/A; Pain 0/10; jg9 14:45 BP 117 / 69; Pulse 52; Resp 21 S; Pulse Ox 97% on R/A; Pain 0/10; jg9 15:00 BP 113 / 67; Pulse 51; Resp 20 S; Pulse Ox 98% on R/A; Pain 0/10; jg9 16:30 BP 112 / 59; Pulse 48; Resp 20 S; Pulse Ox 97% on R/A; jg9 12:38 Body Mass Index 28.63 (101.15 kg, 187.96 cm) ld1 MDM: 13:05 Patient medically screened. snw 14:54 Data interpreted: Pulse oximetry: on room air is 98 %. Counseling: I had a detailed snw discussion with the patient and/or guardian regarding: the historical points, exam findings, and any diagnostic results supporting the discharge/admit diagnosis, lab results, radiology results, to return to the emergency department if symptoms worsen or persist or if there are any questions or concerns that arise at home. Physician consultation: A Harvey MD was called at 14:58, was contacted at 14:58, regarding consult, 500ml bolus and monoclonal antibodies and then dc, would like medications started, monoclonals and ivf. 15:36 Data reviewed: vital signs, nurses notes. Response to treatment: the patient's symptoms snw have mildly improved after treatment. Awaiting: infusion of ivf and monoclonal completion. Pt informed of plan of care and voices understanding. Special discussion: Based on the history and exam findings, there is no indication for further emergent testing or inpatient evaluation. I discussed with the patient/guardian the need to see the primary care provider for further evaluation of the symptoms. 03/17 12:38 Order name: Basic Metabolic Panel; Complete Time: 13:31 ld1 03/17 12:38 Order name: CBC with Diff; Complete Time: 13:28 ld1 03/17 12:38 Order name: Troponin HS; Complete Time: 13:31 ld1 03/17 12:52 Order name: SARS RAPID; Complete Time: 13:47 ld1 03/17 12:52 Order name: CMP; Complete Time: 13:47 03/17 12:52 Order name: Lipase; Complete Time: 13:47 03/17 12:38 Order name: XRAY Chest (1 view); Complete Time: 14:20 03/17 12:38 Order name: EKG; Complete Time: 12:40 03/17 12:38 Order name: Cardiac monitoring; Complete Time: 15:11 03/17 12:38 Order name: EKG - Nurse/Tech; Complete Time: 12:55 03/17 12:38 Order name: IV Saline Lock; Complete Time: 12:55 03/17 12:52 Order name: CT Abd/Pelvis - IV Contrast Only; Complete Time: 14:37 03/17 12:38 Order name: Labs collected and sent; Complete Time: 12:55 03/17 12:38 Order name: O2 Per Protocol; Complete Time: 12:41 03/17 12:38 Order name: O2 Sat Monitoring; Complete Time: 12:41 03/17 13:48 Order name: Misc. Order: medication list to chart please; Complete Time: 15:12 snw Administered Medications: 15:15 Drug: NS 0.9% 500 ml Route: IV; Rate: bolus; Site: right antecubital; jg9 16:41 Follow up: IV Status: Completed infusion; IV Intake: 500ml jg9 15:30 Drug: Bebtelovimab 175 mg Route: IV; Rate: calculated rate; Site: right forearm; jg9 15:40 Follow up: IV Status: Completed infusion; IV Intake: 2ml jg9 16:41 Follow up: Response: (VIS) Vaccine information sheet provided today. Questions and/or jg9 concerns addressed. VIS edition date: Mar 13, 2021.; No adverse reaction Disposition Summary: 03/17/22 15:36 Discharge Ordered Location: Home snw Condition: Stable snw Diagnosis - SARS-associated coronavirus as the cause of diseases classified elsewhere snw - Hypotension, unspecified snw Followup: snw - With: Private Physician - When: 1 week - Reason: Recheck today's complaints, Continuance of care, Re-evaluation by your physician Followup: snw - With: Emergency Department - When: As needed - Reason: Trouble breathing, Worsening of condition Discharge Instructions: - Discharge Summary Sheet snw - COVID-19 snw - 10 Things You Can Do to Manage Your COVID-19 Symptoms at Home - [facility] snw - Viral Illness, Adult snw - COVID-19: Quarantine vs. Isolation - [facility] snw - Prevent the Spread of COVID-19 if You Are Sick - [facility] snw Forms: - Medication Reconciliation Form snw - Thank You Letter snw - Antibiotic Education snw - Prescription Opioid Use snw Signatures: Dispatcher [employer] EDMS Scarlett Chaudhary, SMOCKER-C SMOCKER-Csnw Jennifer Calloway RN RN ld1 Ashley Mccurdy RN RN jg9 Corrections: (The following items were deleted from the chart) 15:00 15:00 Misc. Order ordered. snw snw
--- NOTE | 2022-03-17 15:37 | ER ---
Nurse's Notes [facility] Name: Samuel Portillo Age: 81 yrs Sex: Male : 1940 Arrival Date: 03/17/2022 Time: 12:19 Bed 16 Private MD: Demond Gabriel C Diagnosis: SARS-associated coronavirus as the cause of diseases classified elsewhere;Hypotension, unspecified Presentation: 03/17 12:38 Chief complaint: Patient states: Pt reports Dr. Mustafa office referring pt to ER due to ld1 low BP. Coronavirus screen: At this time, the client does not indicate any symptoms associated with coronavirus-19. Ebola Screen: No symptoms or risks identified at this time. Initial Sepsis Screen: Does the patient meet any 2 criteria? No. Patient's initial sepsis screen is negative. Does the patient have a suspected source of infection? No. Patient's initial sepsis screen is negative. Risk Assessment: Do you want to hurt yourself or someone else? Patient reports no desire to harm self or others. Onset of symptoms was March 17, 2022 at 12:39. 12:38 Method Of Arrival: Ambulatory ld1 12:38 Acuity: WESLEY 3 ld1 Triage Assessment: 12:38 General: Appears in no apparent distress. comfortable, Behavior is calm, cooperative, ld1 appropriate for age. Pain: Denies pain. EENT: No signs and/or symptoms were reported regarding the EENT system. Neuro: Level of Consciousness is awake, alert, obeys commands, Oriented to person, place, time, situation. Cardiovascular: Capillary refill < 3 seconds Patient's skin is warm and dry. Respiratory: Airway is patent Respiratory effort is even, unlabored. GI: Abdomen is flat, non-distended. : No signs and/or symptoms were reported regarding the genitourinary system. Derm: No signs and/or symptoms reported regarding the dermatologic system. Musculoskeletal: No signs and/or symptoms reported regarding the musculoskeletal system. Historical: - Allergies: 12:39 No Known Allergies; ld1 - PMHx: 12:39 Hyperlipidemia; Hypertension; Myocardial infarction; ld1 - PSHx: 12:39 Hip replacement; ld1 - Immunization history:: Adult Immunizations up to date, Client reports receiving the 2nd dose of the Covid vaccine. - Social history:: Smoking status: Patient denies any tobacco usage or history of. Patient/guardian denies using alcohol. Screenin:35 Abuse screen: Denies threats or abuse. Denies injuries from another. Nutritional jg9 screening: No deficits noted. Tuberculosis screening: No symptoms or risk factors identified. Fall Risk None identified. Assessment: 12:43 Reassessment: EKG, IV, LABS completed in triage. ld1 14:30 Reassessment: No changes from previously documented assessment. Patient and/or family jg9 updated on plan of care and expected duration. Pain level reassessed. Patient is alert, oriented x 3, equal unlabored respirations, skin warm/dry/pink. 15:20 Reassessment: Patient and/or family updated on plan of care and expected duration. Pain jg9 level reassessed. Patient is alert, oriented x 3, equal unlabored respirations, skin warm/dry/pink. 16:50 Reassessment: No changes from previously documented assessment. Patient and/or family jg9 updated on plan of care and expected duration. Pain level reassessed. Patient is alert, oriented x 3, equal unlabored respirations, skin warm/dry/pink. Vital Signs: 12:38 BP 106 / 62; Pulse 60; Resp 18; Temp 97.0(TE); Pulse Ox 98% on R/A; Weight 101.15 kg; ld1 Height 6 ft. 2 in. (187.96 cm); Pain 0/10; 14:30 BP 121 / 62; Pulse 54; Resp 22 S; Pulse Ox 98% on R/A; Pain 0/10; jg9 14:45 BP 117 / 69; Pulse 52; Resp 21 S; Pulse Ox 97% on R/A; Pain 0/10; jg9 15:00 BP 113 / 67; Pulse 51; Resp 20 S; Pulse Ox 98% on R/A; Pain 0/10; jg9 16:30 BP 112 / 59; Pulse 48; Resp 20 S; Pulse Ox 97% on R/A; jg9 12:38 Body Mass Index 28.63 (101.15 kg, 187.96 cm) ld1 ED Course: 12:19 Patient arrived in ED. as 12:19 Demond Gabriel MD is Private Physician. as 12:38 Arm band placed on right wrist. ld1 12:39 Triage completed. ld1 12:43 Inserted saline lock: 20 gauge in right antecubital area, using aseptic technique. ld1 Blood collected. 12:54 Scarlett Chaudhary FNP-C is [facility]. snw 12:54 Kuldeep Persaud MD is Attending Physician. snw 13:08 SARS RAPID Sent. ld1 13:08 CMP Sent. ld1 13:08 Lipase Sent. ld1 13:08 Basic Metabolic Panel Sent. ld1 13:08 CBC with Diff Sent. ld1 13:08 Troponin HS Sent. ld1 13:35 XRAY Chest (1 view) In Process Unspecified. EDMS 13:58 CT Abd/Pelvis - IV Contrast Only In Process Unspecified. EDMS 14:35 Ashley Mccurdy, RN is Primary Nurse. jg9 14:36 Patient has correct armband on for positive identification. Bed in low position. Call jg9 light in reach. Side rails up X 1. 14:57 No apparent distress. Resting quietly. jg9 16:48 No provider procedures requiring assistance completed. jg9 16:48 IV discontinued. jg9 Administered Medications: 15:15 Drug: NS 0.9% 500 ml Route: IV; Rate: bolus; Site: right antecubital; jg9 16:41 Follow up: IV Status: Completed infusion; IV Intake: 500ml jg9 15:30 Drug: Bebtelovimab 175 mg Route: IV; Rate: calculated rate; Site: right forearm; jg9 15:40 Follow up: IV Status: Completed infusion; IV Intake: 2ml jg9 16:41 Follow up: Response: (VIS) Vaccine information sheet provided today. Questions and/or jg9 concerns addressed. VIS edition date: Mar 13, 2021.; No adverse reaction Medication: 16:48 Vaccine Information Statement (VIS) provided today. Questions and/or concerns jg9 addressed. VIS edition date: March 17, 2022. Intake: 15:40 IV: 2ml; Total: 2ml. jg9 16:41 IV: 500ml; Total: 502ml. jg9 Outcome: 15:36 Discharge ordered by . snw 16:48 Discharged to home ambulatory. jg9 16:48 Condition: good 16:48 Discharge instructions given to patient, Instructed on discharge instructions, follow up and referral plans. Demonstrated understanding of instructions, follow-up care. 16:53 Patient left the ED. jg9 Signatures: Dispatcher [employer] Scarlett Samaniego, GM-C ARMORER TECHNICIAN-Angelia Reed Lauren, RN RN ld1 Ashley Mccurdy RN RN jg9 Corrections: (The following items were deleted from the chart) 12:40 12:38 Pulse 60bpm; Resp 18bpm; Pulse Ox 98% RA; Temp 97.0F Temporal; 101.15 kg; Height ld1 6 ft. 2 in.; BMI: 28.6; Pain 0/10; ld1
[2022-03-17 18:32] VITALS: TEMP 97
[2022-03-17 18:50] VITALS: BP 112/59; O2SAT 97
--- NOTE | 2022-03-18 14:33 | EKG ---
Test Date: 2022-03-17 Test Time: 12:45:21 Traffic Incident Management Manager: ISSA MEASUREMENT RESULTS: Intervals: Rate: 57 IL: 232 QRSD: 138 QT: 454 QTc: 441 [place]: P: 29 IL: 232 QRS: -55 T: 121 INTERPRETIVE STATEMENTS: Sinus bradycardia with 1st degree AV block Left axis deviation Nonspecific intraventricular block Cannot rule out Anteroseptal infarct, age undetermined T wave abnormality, consider lateral ischemia Abnormal ECG Compared to ECG 08/10/2019 11:32:22 No significant changes Electronically Signed On 03-18-22 14:31:42 CDT by Tirso Brown
== END 2022-03-17 16:53 | disposition home or self-care (01) ==
LOC: ER 12:14
DX: U07.1 COVID-19 (principal); I95.9 Hypotension, unspecified; I10 Essential (primary) hypertension; I25.2 Old myocardial infarction
CPT/HCPCS: 85025; 80048; 36415; 84484; 83690; 80053; 74177; 71045; 87811; Q9967; J7040; 93005; 96361; 96374; 99284

== ENCOUNTER 2023-07-27 06:16 | Day surgery (SDC) | payer OTHER ==
[2023-07-25 16:09] LABS: Absolute Lymphocytes (CBC) 1.1 K/uL (0.7-4.9); Hematocrit 36.1 % (39.6-49.0); Lymphocytes % 13.5 % (15.3-44.8); MCV 95.3 fL (80-100); MPV 8.8 fL (7.6-11.3); Platelets 124 thou/uL (152-406); RBC Red Blood Cell Count 3.79 M/uL (4.33-5.43)
[2023-07-25 16:21] LABS: Potassium 4.2 mEq/L (3.5-5.1)
--- NOTE | 2023-07-25 16:21 | RAD REPORT ---
EXAM DESCRIPTION: RAD - Chest Pa And Lat (2 Views) - 07/25/2023 4:13 pm CLINICAL HISTORY: Pre op pending hernia repair Chest pain. COMPARISON: <Comparisons> FINDINGS: The lungs are clear. The heart is normal in size. No displaced fractures. Large hiatal her maya. IMPRESSION: Large hiatal hernia.
--- NOTE | 2023-07-26 11:48 | EKG ---
Test Date: 2023-07-25 Test Time: 17:15:50 Stator Winder: CHANTELLE MEASUREMENT RESULTS: Intervals: Rate: 61 CA: 234 QRSD: 144 QT: 430 QTc: 432 [place]: P: 59 CA: 234 QRS: -58 T: 121 INTERPRETIVE STATEMENTS: Sinus rhythm with 1st degree AV block Left axis deviation Left bundle branch block Abnormal ECG Compared to ECG 03/17/2022 12:45:21 Left bundle-branch block now present Sinus bradycardia no longer present Myocardial infarct finding no longer present T-wave abnormality no longer present Possible ischemia no longer present Electronically Signed On 07-26-23 11:46:13 CORK COMPOUNDER by Tirso Brown
[2023-07-27] MEDS ORDERED: Ringers Lactate 1,000 ML IV ONE (06:46)
[2023-07-27] MEDS ORDERED: NA CHLORIDE 0.9% 1,000 ML ONE ×2 (07:05→10:06)
[2023-07-27] MEDS ORDERED: propofoL 200 MG/20 ML VIAL IV ONE (07:16)
[2023-07-27] MEDS ORDERED: ONDANSETRON 4 MG/2 ML VIAL ONE (07:16)
[2023-07-27] MEDS ORDERED: ROCURONIUM 50 MG/5 ML VIAL IV ONE (07:16)
[2023-07-27] MEDS ORDERED: LIDOCAINE 2% MPF 5 ML VIAL ONE (07:17)
[2023-07-27] MEDS ORDERED: FENTANYL CITR 100 MCG/2 ML ONE (07:17)
[2023-07-27] MEDS ORDERED: EPHEDRINE SULF 50 MG/ML VIAL ONE (07:44)
[2023-07-27] MEDS ORDERED: EPINEPHrine 1 MG/10 ML SYR ONE (07:44)
[2023-07-27] MEDS ORDERED: GLYCOPYRROLATE 0.2 MG/ML SYR ONE (08:19)
[2023-07-27] MEDS ORDERED: CEFAZOLIN SODIUM 1 GM/VIAL ONE (08:19)
[2023-07-27] MEDS ORDERED: NEOSTIGMINE 1 MG/ML -10 ML VIAL ONE (08:19)
--- NOTE | 2023-07-27 08:28 | P.BOP ---
Preoperative diagnosis: Large tender reducible inguinal hernia Postoperative diagnosis: same Primary procedure: Open repair Large tender reducible inguinal hernia with mesh L House Designer: MAVIS IGLESIAS (HR CONSULTANT) Estimated blood loss: <10cc Specimen: lipoma or cord Findings: as above Anesthesia: General Complications: None Implants: large mesh plug and sheet Transferred to: Recovery Room Condition: Good
[2023-07-27] MEDS: CODEINE 30MG/APAP 300MG TAB ONE ×2 (10:17→10:24)
[2023-07-27 10:45] VITALS: BP 133/65; TEMP 97.2; O2SAT 98
[2023-07-27] MEDS ORDERED: TAMSULOSIN 0.4 MG SR CAP ONE (11:46)
--- NOTE | 2023-07-27 20:04 | OP ---
Date of Procedure: 07/27/2023 Surgeon: Naseem Zimmerman MD Deliverer Merchandise: Fátima Salazar. Preoperative Diagnosis: Large tender reducible inguinal hernia. Postoperative Diagnosis: Large tender reducible inguinal hernia. Procedure: Open repair of large tender reducible inguinal hernia on the left side with mesh. Anesthesia: General plus local. Estimated Blood Loss: Less than 10 cc. Complications: None. Mesh: Large mesh plug and sheet. Indication: This is a case of a male, who came to us with a large incarcerated hernia. This was red ucible in my office today. It was hard to push back. Because of the size, because of the tenderness and because of all the factors, we did wait between laparoscopic possible open, but we decided to do it open with the patient also agreed. So, benefits, alternatives, and risks of open repair of left inguinal hernia with mesh fully explained, which include, but not limited to, infection, bleeding, da mage to adjacent structures, anesthesia complication, recurrence, OR, and even . He also unders tands this may not relieve any symptoms. He might need more than one surgical intervention. He unde rstands pros and cons of mesh placement. They were discussed with the patient and he signed a consen t. Description Of Procedure: Patient was brought to the operating room, placed in supine position. Ane sthesia was done without complication. Inguinal and abdomen were prepped and draped in the usual oleksandr rile fashion. A time-out was called. An incision was made in the left inguinal area. Incision was carried down to Michelle's fascia which was opened under direct vision. Then, after that we found exte rnal oblique aponeurosis and opened it in direction of its fibers. We encountered the ilioinguinal n erve, iliohypogastric nerve and then we protected behind external oblique aponeurosis. Lucy was p laced around the spermatic cord. We noticed to have a large direct hernia present. There was a lipo ma of the cord that was carefully ligated after the cord structures were carefully identified, also s ome omentum but that area since it is direct will be reduced. We reduced that content which was larg e after fully separation from the spermatic cord structures and then imbricated the area with the hel p of a #1 Prolene. Before that, I placed a very large mesh plug and secured it in place with VersaTa ck. Once we have that, we proceeded to imbricate the floor of the canal by securing the #1 Prolene i n the pubic tubercle, shelving edge of inguinal ligament, transversalis fascia, making sure the sperm atic cord was free, reconstructing also the deep inguinal ring. After that, I placed a mesh sheet se curing that with VersaTack to the pubic tubercle, shelving edge of the inguinal ligament, and transve rsalis fascia, and the tails looped around the spermatic cord without strangulation. After that, we checked for hemostasis, irrigated the area, then brought the inguinal nerve and iliohypogastric nerve back into the inguinal canal, reconstructed the superficial inguinal ring with the Prolene and close d the external oblique aponeurosis making sure that the nerves were not included. The area was irrig ated. Michelle's fascia closed with 3-0 chromic and the skin with victoria after subcutaneous tissues w ere closed with 3-0 chromic. The patient tolerated the procedure well. At the end of the case, test icles were in the scrotum. Patient sent to Recovery in stable condition. Sponge counts and instrume nt counts were correct. LANDON/ROGER Voice ID: [id number] Report ID: [id number]
--- NOTE | 2023-07-27 20:11 | DS ---
Date of Discharge: 07/27/2023 Diagnosis: Large tender left inguinal hernia. Procedure: Open repair of large tender left inguinal hernia with mesh. Disposition: Home. Activity: As tolerated. No heavy lifting. Plan: Follow up in my office in 1 week. Call for appointment at [phone]. Keep area dry for 48 satya rs, then may shower. Cold compress to the left inguinal region for 24 hours. LANDON/ROGER Voice ID: [id number] Report ID: [id number]
== END 2023-07-27 12:10 | disposition home or self-care (01) ==
LOC: OR 06:16
PROVIDERS: ATTEND Surgery
PROC: 0YU60JZ Supplement Left Inguinal Region with Synthetic Substitute, Open Approach (ICD-10-PCS; principal; 2023-07-27 07:30)
DX: K40.90 Unilateral inguinal hernia, without obstruction or gangrene, not specified as recurrent (principal); I48.91 Unspecified atrial fibrillation; I10 Essential (primary) hypertension; E11.9 Type 2 diabetes mellitus without complications; Z79.82 Long term (current) use of aspirin; Z79.01 Long term (current) use of anticoagulants
CPT/HCPCS: 93005; 85025; 80048; 36415; 82947 ×2; 88302; 71046; 49505; J2704; J2710; J2001; J3010; J2405; J7120; J7030 ×2; J0690; J0171

== ENCOUNTER → 2023-07-27 | Emergency (ER) | payer OTHER ==
--- NOTE | 2023-07-27 20:12 | ER ---
Nurse's Notes [facility] Name: Samuel Portillo Age: 82 yrs Sex: Male : 1940 Arrival Date: 07/27/2023 Time: 19:09 Bed 3 Private MD: Diagnosis: Urinary retention Presentation: 07/27 19:17 Chief complaint: Patient states: NO UOP SINCE LEFT HERNIA REPAIR THIS MORNING, DR bp SCHULTZ SURGEON. Coronavirus screen: At this time, the client does not indicate any symptoms associated with coronavirus-19. Ebola Screen: No symptoms or risks identified at this time. Initial Sepsis Screen: Does the patient meet any 2 criteria? No. Patient's initial sepsis screen is negative. Does the patient have a suspected source of infection? No. Patient's initial sepsis screen is negative. Risk Assessment: Do you want to hurt yourself or someone else? Patient reports no desire to harm self or others. Onset of symptoms was July 27, 2023 at 07:30. 19:17 Method Of Arrival: Wheelchair bp 19:17 Acuity: WESLEY 3 bp Triage Assessment: 19:18 General: Appears uncomfortable, Behavior is calm, cooperative, appropriate for age. bp Pain: Complains of pain in pelvis. Historical: - Allergies: 19:18 No Known Allergies; bp - PMHx: 19:18 Hyperlipidemia; Myocardial infarction; Hypertension; bp - PSHx: 19:18 hip replacement; bp - Immunization history:: Adult Immunizations up to date. - Social history:: Smoking status: Patient denies any tobacco usage or history of. Screenin:04 [facility] ED Fall Risk Assessment (Adult) Score/Fall Risk Level 0 - 2 = Low Risk. Abuse as6 screen: Denies threats or abuse. Denies injuries from another. Nutritional screening: No deficits noted. Tuberculosis screening: No symptoms or risk factors identified. Assessment: 20:03 General: Appears in no apparent distress. Behavior is calm, cooperative. Pain: as6 Complains of pain in suprapubic area. Neuro: Level of Consciousness is awake, alert, obeys commands, Oriented to person, place, time, situation. Cardiovascular: Capillary refill < 3 seconds Patient's skin is warm and dry. Respiratory: Respiratory effort is even, unlabored, Respiratory pattern is regular, symmetrical. GI: Abdomen is distended. : Reports inability to void. 20:13 General: discharge pending smith to slow draining . as6 Vital Signs: 19:17 BP 136 / 75; Pulse 65; Resp 16; Temp 98; Pulse Ox 97% ; bp 20:04 BP 137 / 75; Pulse 65; Resp 18 S; Pulse Ox 94% on R/A; as6 ED Course: 19:11 Patient arrived in ED. jj6 19:18 Triage completed. bp 19:18 Arm band placed on. bp 19:19 Eric Bernal DO is Attending Physician. ms3 19:51 Jesus Phillips, RN is Primary Nurse. as6 20:03 Smith cath inserted, using sterile technique, 16 Fr., by vt, balloon inflated, to as6 gravity drainage, returned clear yellow urine. Patient tolerated well. 20:04 Placed in gown. Bed in low position. Call light in reach. Side rails up X 1. as6 20:11 Naseem Schultz MD is Referral Physician. ms3 20:14 Provided Education on: leg bag use . as6 20:14 No provider procedures requiring assistance completed. Patient did not have IV access as6 during this emergency room visit. Administered Medications: No medications were administered Medication: 20:04 VIS not applicable for this client. as6 Output: 21:24 Urine: 1600ml (Smith); Total: 1600ml. vc1 Outcome: 20:12 Discharge ordered by . ms3 20:14 Condition: stable as6 21:24 Discharged to home via wheelchair, vc1 21:24 Discharge instructions given to patient, Instructed on discharge instructions, follow up and referral plans. Demonstrated understanding of instructions, follow-up care, 21:30 Patient left the ED. vc1 Signatures: Lukas Ashley, RN RN bp Eric Bernal DO DO ms3 Ashley Fine jj6 Jesus Phillips, SARITA STEIN as6 Meenakshi Campa RN RN vc1
--- NOTE | 2023-07-27 20:12 | EDPHYS ---
Physician Documentation [facility] Name: Samuel Portillo Age: 82 yrs Sex: Male : 1940 Arrival Date: 07/27/2023 Time: 19:09 Bed 3 Private MD: ED Physician Eric Bernal HPI: 07/27 19:40 This 82 yrs old Male presents to ER via Wheelchair with complaints of Post Surgical ms3 Pain, Urinary Retention. 19:40 82-year-old male with past medical history of hyperlipidemia, myocardial infarction, ms3 hypertension presents to the emergency department for urinary retention status post hernia surgery earlier today. Patient states he has not urinated in approximately 6 hours. Patient states his discomfort is an 9/10 located in suprapubic region and described as pressure. Patient denies any alleviating or inciting factors. Historical: - Allergies: 19:18 No Known Allergies; bp - PMHx: 19:18 Hyperlipidemia; Myocardial infarction; Hypertension; bp - PSHx: 19:18 hip replacement; bp - Immunization history:: Adult Immunizations up to date. - Social history:: Smoking status: Patient denies any tobacco usage or history of. ROS: 19:40 Constitutional: Negative for fever, and chills. Neck: Negative for injury, pain, and ms3 swelling, Cardiovascular: Negative for chest pain, and palpitations. Respiratory: Negative for shortness of breath, cough, wheezing, and pleuritic chest pain, 19:40 Abdomen/GI: Positive for abdominal pain, 19:40 : Positive for Urinary retention, 19:40 All other systems are negative, Exam: 19:40 Constitutional: This is a well developed, well nourished patient who is awake, alert, ms3 and in no acute distress. Neck: Trachea midline, no cervical lymphadenopathy. Supple, full range of motion without nuchal rigidity, or vertebral point tenderness. No Meningismus. Chest/axilla: Normal chest wall appearance and motion. Nontender with no deformity. Cardiovascular: Regular rate and rhythm with a normal S1 and S2. No gallops, murmurs, or rubs. Normal PMI, no JVD. No pulse deficits. Respiratory: Lungs have equal breath sounds bilaterally, clear to auscultation and percussion. No rales, rhonchi or wheezes noted. No increased work of breathing, no retractions or nasal flaring. 19:40 Skin: Warm, dry with normal turgor. Normal color with no rashes, no lesions, and no evidence of cellulitis. 19:40 Abdomen/GI: Inspection: abdomen appears normal, Bowel sounds: normal, Palpation: moderate abdominal tenderness, in the suprapubic area, Vital Signs: 19:17 BP 136 / 75; Pulse 65; Resp 16; Temp 98; Pulse Ox 97% ; bp 20:04 BP 137 / 75; Pulse 65; Resp 18 S; Pulse Ox 94% on R/A; as6 MDM: 19:25 Patient medically screened. ms3 19:40 Differential diagnosis: urinary retention. ms3 20:12 Data reviewed: vital signs, nurses notes, and as a result, I will discharge patient. ms3 Care significantly affected by the following chronic conditions: Hypertension. Counseling: I had a detailed discussion with the patient and/or guardian regarding the historical points, exam findings, and any diagnostic results supporting the discharge/admit diagnosis, the need for outpatient follow up, to return to the emergency department if symptoms worsen or persist or if there are any questions or concerns that arise at home. Special discussion: I discussed with the patient/guardian in detail that at this point there is no indication for admission to the hospital. It is understood, however, that if the symptoms persist or worsen the patient needs to return immediately for re-evaluation. ED course: Patient with relief after Chapman catheter placement. Patient to follow-up with Dr. Zimmerman on Tuesday. Patient understands and agrees with plan. All questions were answered. Return precautions discussed include worsening symptoms, or any other concerns. 07/27 19:26 Order name: Chapman; Complete Time: 20: ms3 07/27 19:26 Order name: Chapman Leg Bag; Complete Time: 20: ms3 Administered Medications: No medications were administered Disposition Summary: 07/27/23 20:12 Discharge Ordered Notes: Location: Home ms3 Condition: Stable ms3 Diagnosis - Urinary retention ms3 Followup: ms3 - With: Naseem Zimmerman MD - When: 1 - 2 days - Reason: Recheck today's complaints Discharge Instructions: - Discharge Summary Sheet ms3 - Indwelling Urinary Catheter Care, Adult ms3 - Acute Urinary Retention, Male ms3 Forms: - Medication Reconciliation Form ms3 - Thank You Letter ms3 - Antibiotic Education ms3 - Prescription Opioid Use ms3 - Patient Portal Instructions ms3 - Leadership Thank You Letter ms3 Signatures: Lukas Ashley, RN RN Eric Camarillo, DO ms3
[2023-07-27 23:49] VITALS: BP 137/75; TEMP 98; O2SAT 94
== END ==
LOC: ER 19:09
DX: R33.9 Retention of urine, unspecified (principal); Z98.890 Other specified postprocedural states
CPT/HCPCS: 51702; 99284

== ENCOUNTER 2024-07-19 08:44 | Emergency (ER) | payer OTHER ==
--- OUTSIDE RECORDS SUMMARY | 2024-07-19 08:48 | XMS REPORT | Continuity of Care Document ---
Author Name Unknown Address [address] [place] [address] [facility] Address 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 Role Phone Roman Attending Clinician Unavailable Roman Admitting Clinician Unavailable Payers Payer Name Policy Type Policy Number Effective Date Expirati on Date Source [employer] (MEDICARE REPLACEMENT PPO) [id number] 2023 00:00:00 Problems Condition Name Condition Details Condition Category Status Onset Date Resolution Date Last Treatment Date Treating Clinician Comments Source Lower urinary tract symptoms due to benign prostatic hypertroph y Lower Urinary Tract Symptoms Due to Benign Prostatic Hypertroph y Problem Active 08-16 00:00: 00 [facility] [id number] 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 Problem Common [facility] [id number] Other retention of urine Problem [facility] [id number] Primary osteoarthr itis of right knee Problem [facility] [id number] Primary osteoarthr itis of left knee Problem [facility] Arthritis of knee Arthritis of knee Problem [facility] Osteoarthr itis of knee Unilateral primary osteoarthr itis, unspecifie d knee Problem [facility] Allergies, Adverse Reactions, Alerts Allergy Name Allergy Type Status Severity Reaction(s) Onset Date Inactive Date Treating Clinician Comments Source [place] Active Unknown Commo n [facility] Social History Social Habit Start Date Stop Date Quantity Comments Source History of Tobacco Use [facility] Sex Assigned At [facility] Smoking Status Start Date Stop Date Source Never Smoker [facility] Medications Ordered Medication Name Filled Medication Name Start Date Stop Date Current Medication? Ordering Clinician Indication Dosage Frequency Signature (SIG) Comments Components Source BUPivacaine HCl BUPivacaine HCl 10-03 00:00: 00 No 4mL [facility] Finasteride 5 MG Finasteride 5 MG 2022-08 00:00: 00 No 1{table t} QD Finasterid e 5 MG Flomax 0.4 MG Flomax 0.4 MG 2022-08 00:00: 00 No 1{capsu le} QD Flomax 0.4 MG Kenalog (Triamcinol one) Kenalog (Triamcinol one) 2022-08 00:00: 00 No 1mL [facility] Bupivicaine Micanopy Bupivicaine Micanopy 02-28 00:00: 00 No 4mL [facility] Synvisc Synvisc 02-28 00:00: 00 No 2mL [facility] Metoprolol Succinate 50 MG Metoprolol Succinate 50 MG No 1{capsu le} QD Metoprolol Succinate 50 MG Xelpros 0.005 % Xelpros 0.005 % No QD Xelpros 0.005 % Eliquis 5 MG Eliquis 5 MG No 1{table t} BID Eliquis 5 MG Farxiga 5 MG Farxiga 5 MG No 1{table t} QD Farxiga 5 MG Atorvastati n Calcium 40 MG Atorvastati n Calcium 40 MG No 1{table t} QD Atorvastat in Calcium 40 MG Losartan Potassium 25 MG Losartan Potassium 25 MG No 1{table t} QD Losartan Potassium 25 MG aspirin 81 mg capsule Take 1 capsule every day by oral route. aspirin 81 mg capsule Take 1 capsule every day by oral route. No 1capsul e(s) Q1D aspirin 81 mg capsule Take 1 capsule every day by oral route. [facility] atorvastati n 40 mg tablet TAKE 1 TABLET BY MOUTH EVERY DAY atorvastati n 40 mg tablet TAKE 1 TABLET BY MOUTH EVERY DAY No atorvastat in 40 mg tablet TAKE 1 TABLET BY MOUTH EVERY DAY [facility] Eliquis 5 mg tablet TAKE 1 TABLET BY MOUTH TWICE A DAY Eliquis 5 mg tablet TAKE 1 TABLET BY MOUTH TWICE A DAY No Eliquis 5 mg tablet TAKE 1 TABLET BY MOUTH TWICE A DAY [facility] Farxiga 5 mg tablet TAKE 1 TABLET BY MOUTH DAILY IN MORNING WITH BREAKFAST Farxiga 5 mg tablet TAKE 1 TABLET BY MOUTH DAILY IN MORNING WITH BREAKFAST No Farxiga 5 mg tablet TAKE 1 TABLET BY MOUTH DAILY IN MORNING WITH BREAKFAST [facility] finasteride 5 mg tablet TAKE 1 TABLET BY MOUTH EVERY DAY finasteride 5 mg tablet TAKE 1 TABLET BY MOUTH EVERY DAY No finasterid e 5 mg tablet TAKE 1 TABLET BY MOUTH EVERY DAY [facility] losartan 25 mg tablet TAKE 1 TABLET BY MOUTH EVERY DAY losartan 25 mg tablet TAKE 1 TABLET BY MOUTH EVERY DAY No losartan 25 mg tablet TAKE 1 TABLET BY MOUTH EVERY DAY [facility] Lumigan 0.01 % eye drops PLACE 1 DROP INTO BOTH EYES AT BEDTIME Lumigan 0.01 % eye drops PLACE 1 DROP INTO BOTH EYES AT BEDTIME No Lumigan 0.01 % eye drops PLACE 1 DROP INTO BOTH EYES AT BEDTIME [facility] tamsulosin 0.4 mg capsule TAKE 1 CAPSULE BY MOUTH EVERY DAY tamsulosin 0.4 mg capsule TAKE 1 CAPSULE BY MOUTH EVERY DAY No tamsulosin 0.4 mg capsule TAKE 1 CAPSULE BY MOUTH EVERY DAY [facility] metoprolol succinate ER 25 mg tablet,exte nded release 24 hr TAKE 1 TABLET BY MOUTH EVERY DAY metoprolol succinate ER 25 mg tablet,exte nded release 24 hr TAKE 1 TABLET BY MOUTH EVERY DAY No metoprolol succinate ER 25 mg tablet,ext ended release 24 hr TAKE 1 TABLET BY MOUTH EVERY DAY [facility] Synvisc 16 mg/2 mL intra-artic ular syringe Synvisc 16 mg/2 mL intra-artic ular syringe No Synvisc 16 mg/2 mL intra-carlie cular syringe [facility] Vital Signs Vital Name Observation Time Observation Value Comments S chuyitace height 2024-05-08 09:30:00 73 [in_i] Commo n [facility] weight 2024-05-08 09:30:00 214.5 [lb_av] Co mmon [facility] bmi 2024-05-08 09:30:00 28.3 kg/m2 Commo n [facility] blood pressure systolic 2024-05-08 09:30:00 124 mm[Hg] [facility] blood pressure diastolic 2024-05-08 09:30:00 59 mm[Hg] [facility] BMI (Body Mass Index) 2024-03-05 00:00:00 28 kg/m2 [facility] Body Weight 2024-03-05 00:00:00 212 [lb_av] Elizabeth servin [facility] Height 2024-03-05 00:00:00 73 [in_i] [facility] height 2024-01-09 09:15:00 73 [in_i] Commo n [facility] weight 2024-01-09 09:15:00 224 [lb_av] Comm on [facility] temperature 2024-01-09 09:15:00 98.4 [degF] Com [facility] bmi 2024-01-09 09:15:00 29.55 kg/m2 Comm on [facility] blood pressure systolic 2024-01-09 09:15:00 134 mm[Hg] [facility] blood pressure diastolic 2024-01-09 09:15:00 78 mm[Hg] [facility] height 2023-10-17 09:30:00 73 [in_i] Commo n [facility] weight 2023-10-17 09:30:00 224 [lb_av] Comm on [facility] temperature 2023-10-17 09:30:00 98.4 [degF] Com [facility] bmi 2023-10-17 09:30:00 29.55 kg/m2 Comm on [facility] blood pressure systolic 2023-10-17 09:30:00 124 mm[Hg] Common [facility] blood pressure diastolic 2023-10-17 09:30:00 82 mm[Hg] [facility] height 2023-10-10 15:00:00 73 [in_i] Commo n [facility] weight 2023-10-10 15:00:00 224 [lb_av] Comm on [facility] temperature 2023-10-10 15:00:00 98.0 [degF] Com mon [facility] bmi 2023-10-10 15:00:00 29.55 kg/m2 Comm on [facility] blood pressure systolic 2023-10-10 15:00:00 126 mm[Hg] [facility] blood pressure diastolic 2023-10-10 15:00:00 82 mm[Hg] [facility] height 2023-10-03 09:30:00 73 [in_i] Commo n [facility] weight 2023-10-03 09:30:00 224 [lb_av] Comm on [facility] temperature 2023-10-03 09:30:00 98.1 [degF] Com [facility] bmi 2023-10-03 09:30:00 29.55 kg/m2 Comm on [facility] blood pressure systolic 2023-10-03 09:30:00 122 mm[Hg] [facility] blood pressure diastolic 2023-10-03 09:30:00 78 mm[Hg] [facility] height 2023-09-14 09:30:00 73 [in_i] Commo n [facility] weight 2023-09-14 09:30:00 224 [lb_av] Comm on [facility] temperature 2023-09-14 09:30:00 98.6 [degF] Com mon [facility] bmi 2023-09-14 09:30:00 29.55 kg/m2 Comm on [facility] blood pressure systolic 2023-09-14 09:30:00 124 mm[Hg] Common [facility] blood pressure diastolic 2023-09-14 09:30:00 76 mm[Hg] Common [facility] BMI (Body Mass Index) 2023-09-06 00:00:00 28 kg/m2 [facility] Body Weight 2023-09-06 00:00:00 212 [lb_av] [facility] Height 2023-09-06 00:00:00 73 [in_i] [facility] BMI (Body Mass Index) 2023-08-22 00:00:00 28 kg/m2 [facility] Height 2023-08-22 00:00:00 73 [in_i] [facility] Body Weight 2023-08-22 00:00:00 212 [lb_av] [facility] BP Diastolic 2023-08-16 00:00:00 76 mm[Hg] [facility] BMI (Body Mass Index) 2023-08-16 00:00:00 28 kg/m2 [facility] BP Systolic 2023-08-16 00:00:00 122 mm[Hg] [facility] Weight 2023-08-16 00:00:00 212 [lb_av] [facility] Height 2023-08-16 00:00:00 73 [in_i] [facility] height 2023-08-10 15:45:00 73 [in_i] Commo n [facility] weight 2023-08-10 15:45:00 216.0 [lb_av] Co mmon [facility] temperature 2023-08-10 15:45:00 98.2 [degF] Com mon [facility] bmi 2023-08-10 15:45:00 28.49 kg/m2 Comm on [facility] oximetry 2023-08-10 15:45:00 96 % Commo n [facility] respiratory rate 2023-08-10 15:45:00 18 /min [facility] blood pressure systolic 2023-08-10 15:45:00 105 mm[Hg] [facility] blood pressure diastolic 2023-08-10 15:45:00 56 mm[Hg] [facility] Encounters Start Date/Time End Date/Time Encounter Type Admission Type Attending [facility] Care Facility Care Department Encounter ID Source 2023-09-29 14:50:02 Outpatient STLMLC STL[facility]C [id number] [facility] 2023-09-05 13:48:01 Outpatient STLMLC STLMLC [id number] [facility] 2023-08-10 15:40:01 Outpatient STLMLC STLMLC [id number] [facility] 2023-08-03 09:53:01 Outpatient STLMLC STLMLC [id number] [facility] 2024-05-08 00:00:00 2024-05-08 00:00:00 OFFICE VISIT ESTAB PT LEVEL 4 STLMLC STLMLC [id number] [facility] 2024-03-05 00:00:00 2024-03-05 00:00:00 Marino Colindres MD: [id number] [facility] [address] [facility] [place], [place] [address] , Ph. [facility] [place] - [id number] [facility] 2024-01-09 00:00:00 2024-01-09 00:00:00 (F/U) Follow Up Visit STLMLC STLMLC [id number] [facility] 2023-10-17 00:00:00 2023-10-17 00:00:00 (IN/ASP) INJ ASP STLMLC STLMLC [id number] [facility] 2023-10-10 00:00:00 2023-10-10 00:00:00 (IN/ASP) INJ ASP STLMLC STLMLC [id number] [facility] 2023-10-03 00:00:00 2023-10-03 00:00:00 (IN/ASP) INJ ASP STLMLC STLMLC [id number] [facility] 2023-09-14 00:00:00 2023-09-14 00:00:00 (TEL) STLMLC STLMLC [id number] [facility] 2023-09-14 00:00:00 2023-09-14 00:00:00 OFFICE VISIT ESTAB PT LEVEL 4 STLMLC STLMLC [id number] [facility] 2023-09-08 00:00:00 2023-09-08 00:00:00 Outpatient Schiffman_Z [facility] [id number] [facility] 2023-09-06 00:00:00 2023-09-06 00:00:00 Outpatient Schiffman_Z [facility] [id number] [facility] 2023-09-06 00:00:00 2023-09-06 00:00:00 Marino Colindres MD: [id number] [address] , [facility]. [id number] 2023-09-02 00:00:00 2023-09-02 00:00:00 Outpatient Schiffman_Z [facility] [id number] [facility] 2023-08-31 00:00:00 2023-08-31 00:00:00 (TEL) STLMLC STLMLC [id number] [facility] 2023-08-27 00:00:00 2023-08-27 00:00:00 Outpatient Schiffman_Z [facility] [id number] [facility] 2023-08-22 00:00:00 2023-08-22 00:00:00 Marino Colindres MD: [id number] [address] , Ph. U [facility] [id number] [facility] 2023-08-20 00:00:00 2023-08-20 00:00:00 Outpatient Roman [facility] [id number] [facility] 2023-08-16 00:00:00 2023-08-16 00:00:00 Outpatient Roman [facility] [id number] [facility] 2023-08-16 00:00:00 2023-08-16 00:00:00 Marino Colindres MD: [id number] [address], [place] [address] , Ph. [facility] [id number] [facility] 2023-08-15 00:00:00 2023-08-15 00:00:00 Outpatient Roman [facility] [id number] [facility] 2023-08-10 00:00:00 2023-08-10 00:00:00 OFFICE VISIT ESTAB PT LEVEL 4 STLMLC STLMLC [id number] [facility] Results Test Description Test Time Test Comments Results Result Co mments Source [facility]rology[facility]acteria identified in Urine by [id number] 00:00:00 [facility]
[2024-07-19] MEDS ORDERED: BISACODYL 10 MG RECTAL SUPP ONE (09:05)
[2024-07-19] MEDS ORDERED: MECLIZINE HCL 12.5 MG TAB ONE (09:05)
[2024-07-19] MEDS ORDERED: ONDANSETRON 4 MG/2 ML VIAL ONE (09:05)
[2024-07-19] MEDS ORDERED: NA CHLORIDE 0.9% 1,000 ML ONE (09:06)
[2024-07-19] MEDS ORDERED: FOLIC ACID 5 MG/ML VIAL ONE (09:06)
[2024-07-19] MEDS ORDERED: LACTULOSE 20 GM/30 ML UCUP ONE (09:07)
--- NOTE | 2024-07-19 09:21 | RAD REPORT ---
EXAM: CT Ct Stroke Brain Wo Cont HISTORY: STROKE ALERT. Dizziness COMPARISON: None TECHNIQUE: Multiple contiguous axial images were obtained for a CT of the brain without contrast. Sag ittal and coronal reformats were performed. One or more of the following dose reduction techniques were used: Automated exposure control, adjus tment of the mA and kV according to patient size, and iterative reconstruction. Unless otherwise specified, incidental findings do not require dedicated imaging follow-up. FINDINGS: No evidence of hydrocephalus, intracranial hemorrhage, or extra-axial fluid collection. The brain is normal in morphology. The calvarium is intact. The visualized paranasal sinuses and mastoid air cells are essentially clear . IMPRESSION: No evidence of acute intracranial abnormality. THIS REPORT CONTAINS FINDINGS THAT MAY BE CRITICAL TO PATIENT CARE. The findings were verbally commun icated via telephone to Isac Bradley MD on 07/19/2024 9:17 AM.
[2024-07-19 09:31] LABS: Absolute Eosinophils 0.1 K/uL (0-0.5); Absolute Lymphocytes (CBC) 0.9 K/uL (0.7-4.9); Absolute Monocytes 0.6 K/uL (0.1-1.3); Absolute Neutrophil 5.1 K/uL (1.8-8.0); Basophils % 0.4 % (0-1.3); Eosinophils % 1.3 % (0-4.4); Hematocrit 31.2 % (39.6-49.0); Hemoglobin 10.2 g/dL (13.6-17.9); Lymphocytes % 13.5 % (15.3-44.8); MCH 31.6 pg (27.0-35.0); MCHC 32.8 g/dL (32.0-36.0); MCV 96.4 fL (80-100); MPV 8.5 fL (7.6-11.3); Neutrophils % 75.8 % (41.7-73.7); Platelets 137 thou/uL (152-406); RBC Red Blood Cell Count 3.23 M/uL (4.33-5.43); Red Cell Distribution Width 13.9 % (12.1-15.2)
[2024-07-19 09:34] LABS: PT Prothrombin Time 13.4 SECONDS (9.4-12.5); Protime INR 1.2
--- NOTE | 2024-07-19 09:48 | RAD REPORT ---
EXAMINATION: CTA HEAD CLINICAL INDICATION: Male, 83 years old. STROKE ALERT TECHNIQUE: Axial CT images were obtained through the head after intravenous contrast utilizing angiog raphic protocol with 3D post-processing (maximum intensity projection images, volume rendered images and/or shaded surface rendered images). One or more of the following dose reduction technique s were used: Automated exposure control, adjustment of the mA and/or kV according to patient size, and/or iterative reconstruction. Unless otherwise specified, incidental findings do not require dedic ated imaging follow-up. COMPARISON: Noncontrast head CT of the same day FINDINGS: ICA: The petrous, cavernous, and supraclinoid segments of the bilateral internal carotid arteries are normal. RODERICK: Anterior cerebral arteries are normal bilaterally. The anterior communicating artery is patent. MCA: Middle cerebral arteries are normal bilaterally. NATIONAL SALES CONSULTANT: Posterior cerebral arteries are normal bilaterally. Patent right posterior communicating artery with diminutive right P1 segment. Vertebrobasilar: The vertebral arteries are patent. The basilar artery is normal in appearance. 3D images confirm these findings. IMPRESSION: No evidence of hemodynamically significant stenosis or large vessel occlusion.
--- NOTE | 2024-07-19 09:50 | RAD REPORT ---
EXAMINATION: CT Neck Angio CLINICAL INDICATION: Male, 83 years old. [facility] MAIN PAIN Bed Name: 8 TECHNIQUE: Axial CT images were obtained from the aortic arch to the skull base after intravenous con trast utilizing angiographic protocol. Multiplanar reformats, as well as 3D post-processing (maximum intensity projection images, volume rendered images and/or shaded surface rendered images) w ere generated and reviewed. One or more of the following dose reduction techniques were used: Automated exposure control, adjustment of the mA and/or kV according to patient size, and/or iterativ e reconstruction. Unless otherwise specified, incidental findings do not require dedicated imaging follow-up. COMPARISON: Noncontrast head CT and CT angiogram the same day FINDINGS: AORTA: The imaged aortic arch is normal. Normal three-vessel configuration of the arch. CCA: No artifact The common carotid arteries are patent and normal in caliber. ICA/ECA: Bilateral internal and external carotid arteries are patent. There is no significant interna l carotid artery stenosis. VERTEBRAL: The cervical vertebral arteries are patent to the skull base. Vertebral arteries are codom inant. SOFT TISSUE: No significant neck soft tissue abnormalities. The visualized lung apices are clear. 3D images confirm these findings. Ill-defined bilateral thyroid nodules, not well evaluated on this exam. Moderate multilevel spinal de generative changes, contributing to moderate degrees of neural foraminal narrowing most pronounced on the left at C6-7, and on the right at C3-4 and C5-6. IMPRESSION: No significant flow abnormality of the neck vessels is identified. Ill-defined bilateral thyroid nodules, not well evaluated on this exam. Cervical spine degenerative changes as above. NASCET criteria used to quantify ICA stenosis, with the following grading scheme: Mild 0-49% stenosis Moderate 50-69% stenosis Severe 70-99% stenosis Reference: [place] Symptomatic Carotid Endarterectomy Trial Collaborators; German MOSLEYM, Senia DW, [place] RB, et al. Beneficial effect of carotid endarterectomy in symptomatic patients with high-grade carotid stenosis. N Engl J Med. 1990 15;325(7):445-53.
[2024-07-19 09:51] LABS: Albumin 2.6 g/dL (3.4-5.0); Albumin/Globulin Ratio 0.5 (1.1-1.8); Anion Gap 9.7 mEq/L (5.0-15.0); Bilirubin Direct 0.2 mg/dL (0-0.2); Bilirubin Indirect, Calculated 0.4 mg/dL (0.2-0.8); Bilirubin Total 0.6 mg/dL (0.2-1.0); Globulin 4.9 g/dL (2.3-3.5); Magnesium 2.2 mg/dL (1.6-2.4); Potassium 3.7 mEq/L (3.5-5.1); Protein, Total 7.5 g/dL (6.4-8.2); Troponin High Sensitivity 18.7 pg/mL (<58.9)
--- NOTE | 2024-07-19 10:13 | RAD REPORT ---
EXAMINATION: CT Abdomen Pelvis W Contrast CLINICAL INDICATION: Male, 83 years old. Constipation;Abd pain TECHNIQUE: CT abdomen and pelvis was performed, after the administration of IV contrast, as per [facility] protocol. Axial, sagittal and coronal reconstructions were obtained. One or more of the following dose reduction techniques were used: Automated exposure control, adjustment of the mA and k V according to patient size, and iterative reconstruction. Unless otherwise specified, incidental findings do not require dedicated imaging follow-up. COMPARISON: 03/17/2022 FINDINGS: LOWER CHEST: Large diaphragmatic hernia containing the entirety of the stomach, which demonstrates or ganoaxial rotation, with greater curvature present posteriorly. The appearance is overall stable without gastric distention. Trace bilateral pleural effusions LIVER: Normal in size and contour. No focal lesion. BILIARY SYSTEM: No biliary ductal dilation. Few small calculi layering dependently near the neck. SPLEEN: Normal size. No focal lesion. PANCREAS: No mass, ductal dilation, or karmen-pancreatic fluid. ADRENALS: Normal; no mass. KIDNEYS: Normal size and contour. No hydronephrosis. Bilateral renal cysts, the largest is transcorti aubrey at the right lower pole, measuring 4.9 cm. URINARY BLADDER: Unremarkable. GASTROINTESTINAL TRACT: No evidence of free air, significant intra-abdominal free fluid, bowel obstru ction or abscess. Moderate sigmoid and rectal stool. APPENDIX: Normal appendix. LYMPH NODES: No lymphadenopathy. MUSCULOSKELETAL: No acute or suspicious osseous abnormality. ADDITIONAL FINDINGS: Small umbilical hernia containing fat. IMPRESSION: No acute or concerning abnormalities seen in the abdomen or pelvis. Moderate stool burden in the sigmoid colon and rectal bulb. 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 Few gallstones and other stable findings a s above.
--- NOTE | 2024-07-19 10:13 | RAD REPORT ---
EXAMINATION: ONE VIEW CHEST XR CLINICAL INDICATION: Male, 83 years old.,COUGH TECHNIQUE: Frontal chest projection is submitted. Examination is limited by patient positioning and t echnique. COMPARISON: 07/19/2024 FINDINGS: The lungs are well inflated and clear. No pneumothorax or sizable effusion. Stable cardiomegaly and tortuosity thoracic aorta. IMPRESSION: No acute intrathoracic abnormalities.
[2024-07-19] MEDS ORDERED: LORazepam 2 MG/ML VIAL ONE (10:31)
[2024-07-19 10:50] LABS: Specific Gravity 1.026 (1.005-1.030); Sqamous Epithelial None Seen /HPF (None Seen); Urine Bacteria <20 /HPF (<20); Urine Bilirubin NEGATIVE (Negative); Urine Blood 1+ (Negative); Urine Clarity Clear (Clear); Urine Color Light-Yellow (Yellow); Urine Culture Reflex Order NOT NEEDED; Urine Glucose 4+ (Negative); Urine Ketones 1+ (Negative); Urine Microscopic Reflex YN ORDER UMIC; Urine Mucus Slight /HPF (None Seen); Urine Nitrite NEGATIVE (Negative); Urine Protein TRACE (Negative); Urine Urobilinogen Normal (Normal); Urine WBC <5 /HPF (<5)
--- NOTE | 2024-07-19 12:04 | RAD REPORT ---
EXAMINATION: MRI BRAIN WITHOUT CONTRAST CLINICAL INDICATION: Male, 83 years old.[facility] MAIN Y N STROKE ALERT Bed Name: 8 TECHNIQUE: Multiplanar multisequence MR images of the brain were obtained without intravenous contras t. Unless otherwise specified, incidental findings do not require dedicated imaging follow-up. COMPARISON: Head CT and CT angiogram of the same day. FINDINGS: INTRACRANIAL: Midline structures are unremarkable. Diffusion-weighted images show no acute or early subacute infarction. There is mild brain atrophy with mildT2/FLAIR hyperintensities in the periventricular and deep white matter regions, likely representing chronic microvascular ischemic baljit nges. Foci of near CSF signal intensity anterior periventricular white matter may relate to the same etiology versus prominent perivascular spaces. There is no mass effect or midline shift. No abno rmal extraaxial fluid collection. VASCULATURE: Normal signal voids in the larger intracranial arteries and dural venous sinuses. SINUSES: The paranasal sinuses and mastoid air cells are predominantly clear. BONE: The marrow signal pattern is within normal limits. IMPRESSION: No significant intracranial abnormalities. Chronic findings as above
--- NOTE | 2024-07-19 12:20 | ER ---
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 Pt also reports suprapubic pain and last BM was 4-5 days ago. 08:50 Coronavirus screen: nausea. Ebola Screen: Patient denies travel to an Ebola-affected [facility] area in the 21 days before illness onset. Initial Sepsis Screen: Does the patient meet any 2 criteria? No. Patient's initial sepsis screen is negative. Does the patient have a suspected source of infection? No. Patient's initial sepsis screen is negative. Risk Assessment: Do you want to hurt yourself or someone else? Patient reports no desire to harm self or others. Onset of symptoms was July 19, 2024. 08:50 Acuity: WESLEY 3 aa5 08:50 Method Of Arrival: EMS: [facility] aa5 08:50 Care prior to arrival: IV initiated. 20 GA, in the right antecubital area, Glucose aa5 check: 142. Historical: - Allergies: 08:50 No Known Allergies; aa5 - PMHx: 08:50 Hyperlipidemia; Hypertension; Myocardial infarction; aa5 - PSHx: 08:50 hip replacement; aa5 08:50 hernia repair sx (Unknown); aa5 - Immunization history:: Adult Immunizations unknown. - Infectious Disease History:: Denies. - Social history:: Smoking status: Patient denies any tobacco usage or history of. - Family history:: not pertinent. Screenin:50 [facility] Fall Risk Assessment (Adult) History of falling in the last 3 months, aa5 including since admission No falls in past 3 months (0 pts) Confusion or Disorientation No (0 pts) Intoxicated or Sedated No (0 pts) Impaired Gait Yes (1 pt) Mobility Assist Device Used Yes (1 pt) Altered Elimination Yes (1 pt) Score/Fall Risk Level 3 or more points = High Risk Oriented to surroundings, Maintained a safe environment, Educated pt \T\ family on fall prevention, incl call for assistance when getting out of bed, Hourly rounding (assess needs \T\ fall precautionary measures) done. Abuse screen: Denies threats or abuse. Nutritional screening: No deficits noted. Tuberculosis screening: No symptoms or risk factors identified. Assessment: 08:50 General: Appears uncomfortable, Behavior is calm, cooperative. Pain: Complains of pain aa5 in suprapubic area Pain currently is 5 out of 10 on a pain scale. Pain began today Is continuous. Neuro: Level of Consciousness is awake, alert, obeys commands, Oriented to person, place, time, situation, Prefitter are equal bilaterally Moves all extremities. Speech is normal, Facial symmetry appears normal, Reports dizziness, describes as the room spinning and worse with movement. Cardiovascular: Heart tones S1 S2 present Rhythm is sinus bradycardia. Respiratory: Airway is patent Respiratory effort is even, unlabored, Respiratory pattern is regular, symmetrical. GI: Abdomen is round Bowel sounds present X 4 quads. Abdomen is tender to palpation in suprapubic area Reports constipation, nausea, Patient currently denies diarrhea, vomiting. : Reports urgency. EENT: No signs and/or symptoms were reported regarding the EENT system. Derm: Skin is pink, warm \T\ dry. Musculoskeletal: Range of motion: intact in all extremities. 09:20 Reassessment: Pt's now at bedside. . aa5 09:30 Reassessment: Pt back from CT scan . aa5 09:30 Reassessment: Patient is alert, oriented x 3, equal unlabored respirations, skin aa5 warm/dry/pink. 09:31 Reassessment: Pt dry heaving, PO medications on hold. . aa5 10:01 Reassessment: Pt assisted with bedpan, currently attempting to have BM. . aa5 10:18 Reassessment: Patient is alert, oriented x 3, equal unlabored respirations, skin aa5 warm/dry/pink. 10:38 Reassessment: Patient is alert, oriented x 3, equal unlabored respirations, skin aa5 warm/dry/pink. Ativan administered for MRI, pt voiced anxiety about MRI. . 10:38 Reassessment: Pt was unable to have BM. . aa5 10:42 Reassessment: Patient is alert, oriented x 3, equal unlabored respirations, skin aa5 warm/dry/pink. Pt to MRI. 12:00 Reassessment: Back from MRI, pt resting in bed with eyes closed, reports dizziness and aa5 nausea have improved. . 12:24 Reassessment: MD at bedside speaking to pt and . . aa5 13:40 Reassessment: Patient is alert, oriented x 3, equal unlabored respirations, skin aa5 warm/dry/pink. Patient states feeling better. Patient states symptoms have improved. Vital Signs: 08:50 BP 136 / 71; Pulse 56; Resp 18 S; Temp 97.2(O); Pulse Ox 98% on R/A; Weight 96.16 kg aa5 (R); Height 6 ft. 1 in. (R); 09:38 BP 129 / 62; Pulse 53; Resp 16 S; Pulse Ox 96% on R/A; aa5 10:38 Pulse Ox 99% on 2 lpm NC; aa5 10:39 BP 125 / 64; Pulse 55; Resp 16 S; Pulse Ox 99% on 2 lpm NC; aa5 12:03 BP 126 / 69; Pulse 53; Resp 18 S; Pulse Ox 98% on 2 lpm NC; aa5 13:00 BP 128 / 70; Pulse 54; Resp 18 S; Temp 97.5(TE); Pulse Ox 96% on R/A; aa5 08:50 Body Mass Index 27.97 (96.16 kg, 185.42 cm) aa5 ED Course: 08:49 Patient arrived in ED. aa5 08:49 Arm band placed on Patient placed in an exam room, on a stretcher. aa5 08:49 Patient has correct armband on for positive identification. Placed in gown. Bed in low aa5 position. Call light in reach. Side rails up X2. Client placed on continuous cardiac and pulse oximetry monitoring. NIBP monitoring applied. environmental monitoring technician on. Pulse ox on. NIBP on. 08:50 Isac Bradley MD is Attending Physician. [facility] 08:52 Triage completed. aa5 08:53 Faby Santana, SARITA is Primary Nurse. aa5 09:[address] via stretcher. aa5 09:24 CT Head Angio In Process Unspecified. EDMS 09:24 CT Neck Angio In Process Unspecified. EDMS 09:25 CT Abd/Pelvis - PO Contrast Only In Process Unspecified. EDMS 09:30 Initial lab(s) drawn, by ED staff, sent to lab. Maintain EMS IV. Dressing intact. Good aa5 blood return noted. Site clean \T\ dry. Gauge \T\ site: 20G to R AC . Flushed with 10 mL NS. 09:31 EKG done, by ED staff, reviewed by Isac Bradley MD. aa5 09:49 XRAY Chest (1 view) In Process Unspecified. EDMS 11:20 Brain Wo Cont In Process Unspecified. EDMS 12:19 Feliberto Brito MD is Referral Physician. baljit 12:19 Messi Gabriel MD is Referral Physician. baljit 13:40 IV discontinued, intact, bleeding controlled, No redness/swelling at site. Pressure aa5 dressing applied. 13:40 No provider procedures requiring assistance completed. aa5 Administered Medications: 09:02 Drug: NS 0.9% IV 1000 ml IV at 1 bolus Per protocol; to be given as a bolus over 60 aa5 minutes Route: IV; Rate: 1 bolus; Site: right antecubital; 10:18 Follow up: IV Status: Completed infusion; IV Intake: 1000ml aa5 09:32 Drug: Ondansetron IVP 4 mg IVP once; over 2 minutes Route: IVP; Site: right antecubital;aa5 10:15 Follow up: Response: No adverse reaction; Nausea is decreased aa5 09:32 Drug: foLIC Acid IVPB 1 mg IVPB once Route: IVPB; Site: right antecubital; aa5 09:55 Drug: Dulcolax PA Suppository 10 mg PA once Route: PA; aa5 10:19 Follow up: Response: No adverse reaction aa5 10:18 Drug: Lactulose PO 30 grams 45 ml PO once Volume: 45 ml; Route: PO; aa5 10:38 Follow up: Response: No adverse reaction aa5 10:18 Drug: Meclizine PO 50 mg PO once Route: PO; aa5 10:38 Follow up: Response: No adverse reaction aa5 10:38 Drug: Ativan IVP 1 mg IVP once Route: IVP; Site: right antecubital; aa5 10:42 Follow up: Response: No adverse reaction aa5 Medication: 09:41 VIS not applicable for this client. aa5 Intake: 10:18 IV: 1000ml; Total: 1000ml. aa5 Outcome: 12:19 Discharge ordered by . baljit 13:40 Discharged to home via wheelchair, with significant other, aa5 13:40 Condition: improved 13:40 Discharge instructions given to patient, significant other, Instructed on discharge instructions, follow up and referral plans. medication usage, Demonstrated understanding of instructions, follow-up care, medications, Prescriptions given X 5 14:01 Patient left the ED. ty Signatures: Dispatcher [employer] EDMS Isac Bradley MD MD cha Calderon, Audri, RN RN aa5 Harjinder Kohler ty Corrections: (The following items were deleted from the chart) 08:51 08:50 PSHx: hernia repair sx (hip replacement); aa5 aa5 09:44 08:50 Neuro: Level of Consciousness is awake, alert, obeys commands, Oriented to aa5 person, place, time, situation, aa5 17:17 10:42 Reassessment: Patient is alert, oriented x 3, equal unlabored respirations, skin aa5 warm/dry/pink. Pt to CT scan . aa5 17:26 12:03 BP 126 / 69; Pulse 53bpm; Resp 18bpm; Spontaneous; Pulse Ox 98% RA; aa5 aa5
--- NOTE | 2024-07-19 12:20 | EDPHYS ---
Physician Documentation [facility] Name: Samuel Portillo Age: 83 yrs Sex: Male : 1940 Arrival Date: 07/19/2024 Time: 08:44 Bed 8 Private MD: ELIZABETH Physician Isac Bradley HPI: 07/19 10:49 This 83 yrs old Male presents to ER via EMS with complaints of Dizziness, baljit Nausea. 10:49 The patient presents with dizziness. Onset: The symptoms/episode began/occurred this baljit morning. Context: occurred at home, occurred while the patient was at rest, just prior to the episode the patient experienced no apparent symptoms. Modifying factors: The symptoms are alleviated by closing eyes, holding head still, the symptoms are aggravated by movement of head, changing position. Associated signs and symptoms: The patient has no apparent associated signs or symptoms. Severity of symptoms: At their worst the symptoms were mild in the emergency department the symptoms are unchanged. Patient's baseline: Neuro: alert and fully oriented. The patient has experienced similar episodes in the past, a few times. Historical: - Allergies: 08:50 No Known Allergies; aa5 - PMHx: 08:50 Hyperlipidemia; Hypertension; Myocardial infarction; aa5 - PSHx: 08:50 hip replacement; aa5 08:50 hernia repair sx (Unknown); aa5 - Immunization history:: Adult Immunizations unknown. - Infectious Disease History:: Denies. - Social history:: Smoking status: Patient denies any tobacco usage or history of. - Family history:: not pertinent. ROS: 10:49 Constitutional: Negative for fever, chills, and weight loss, Eyes: Negative for injury, baljit pain, redness, and discharge, ENT: Negative for injury, pain, and discharge, Neck: Negative for injury, pain, and swelling, Cardiovascular: Negative for chest pain, palpitations, and edema, Respiratory: Negative for shortness of breath, cough, wheezing, and pleuritic chest pain, Abdomen/GI: Negative for abdominal pain, nausea, vomiting, diarrhea, and constipation, Back: Negative for injury and pain, : Negative for injury, bleeding, discharge, and swelling, MS/Extremity: Negative for injury and deformity, Skin: Negative for injury, rash, and discoloration, Psych: Negative for depression, anxiety, suicide ideation, homicidal ideation, and hallucinations, Allergy/Immunology: Negative for hives, rash, and allergies, Endocrine: Negative for neck swelling, polydipsia, polyuria, polyphagia, and marked weight changes, Hematologic/Lymphatic: Negative for swollen nodes, abnormal bleeding, and unusual bruising, 10:49 Neuro: Positive for dizziness, Exam: 10:49 Constitutional: This is a well developed, well nourished patient who is awake, alert, baljit and in no acute distress. Head/Face: Normocephalic, atraumatic. Eyes: Pupils equal round and reactive to light, extra-ocular motions intact. Lids and lashes normal. Conjunctiva and sclera are non-icteric and not injected. Cornea within normal limits. Periorbital areas with no swelling, redness, or edema. ENT: Nares patent. No nasal discharge, no septal abnormalities noted. Tympanic membranes are normal and external auditory canals are clear. Oropharynx with no redness, swelling, or masses, exudates, or evidence of obstruction, uvula midline. Mucous membranes moist. Neck: Trachea midline, no thyromegaly or masses palpated, and no cervical lymphadenopathy. Supple, full range of motion without nuchal rigidity, or vertebral point tenderness. No Meningismus. Chest/axilla: Normal chest wall appearance and motion. Nontender with no deformity. No lesions are appreciated. Cardiovascular: Regular rate and rhythm with a normal S1 and S2. No gallops, murmurs, or rubs. Normal PMI, no JVD. No pulse deficits. Respiratory: Lungs have equal breath sounds bilaterally, clear to auscultation and percussion. No rales, rhonchi or wheezes noted. No increased work of breathing, no retractions or nasal flaring. Abdomen/GI: Soft, non-tender, with normal bowel sounds. No distension or tympany. No guarding or rebound. No evidence of tenderness throughout. Back: No spinal tenderness. No costovertebral tenderness. Full range of motion. Male : Normal genitalia with no discharge or lesions. Skin: Warm, dry with normal turgor. Normal color with no rashes, no lesions, and no evidence of cellulitis. MS/ Extremity: Pulses equal, no cyanosis. Neurovascular intact. Full, normal range of motion., bilateral aka Neuro: Awake and alert, GCS 15, oriented to person, place, time, and situation. Cranial nerves II-XII grossly intact. Motor strength 5/5 in all extremities. Sensory grossly intact. Cerebellar exam normal. Normal gait. Psych: Awake, alert, with orientation to person, place and time. Behavior, mood, and affect are within normal limits. 10:49 ECG was reviewed by the Attending Physician. Vital Signs: 08:50 BP 136 / 71; Pulse 56; Resp 18 S; Temp 97.2(O); Pulse Ox 98% on R/A; Weight 96.16 kg aa5 (R); Height 6 ft. 1 in. (R); 09:38 BP 129 / 62; Pulse 53; Resp 16 S; Pulse Ox 96% on R/A; aa5 10:38 Pulse Ox 99% on 2 lpm NC; aa5 10:39 BP 125 / 64; Pulse 55; Resp 16 S; Pulse Ox 99% on 2 lpm NC; aa5 12:03 BP 126 / 69; Pulse 53; Resp 18 S; Pulse Ox 98% on 2 lpm NC; aa5 13:00 BP 128 / 70; Pulse 54; Resp 18 S; Temp 97.5(TE); Pulse Ox 96% on R/A; aa5 08:50 Body Mass Index 27.97 (96.16 kg, 185.42 cm) aa5 MDM: 08:50 Medical Screening Exam initiated baljit 10:52 Differential diagnosis: cardiac arrhythmia, CVA, generalized weakness, hypovolemia, baljit idiopathic dizziness, near-syncope, sepsis, TIA, vertigo. Data reviewed: vital signs, nurses notes, EMS record, lab test result(s), EKG, radiologic studies, CT scan, MRI, plain films. Consideration of Admission/Observation Escalation of care including admission/observation considered. I considered the following discharge prescriptions or medication management in the emergency department Medications were administered in the Emergency Department. See MAR. Independent interpretation of the following test(s) in the Emergency Department EKG: See my EKG interpretation above. Test considered but Not performed: Ultrasound NO CAROTID USG. Historians other than the Patient: Family Member: , OTHER FAMILY. Care significantly affected by the following chronic conditions: Hypertension. Counseling: I had a detailed discussion with the patient and/or guardian regarding the historical points, exam findings, and any diagnostic results supporting the discharge/admit diagnosis, lab results, radiology results, the need for outpatient follow up, for definitive care, an chief reservoir engineering. 07/19 08:58 Order name: Basic Metabolic Panel; Complete Time: 10:18 [facility] 12 08:58 Order name: CBC with Diff; Complete Time: 10:18 [facility] 07/19 08:58 Order name: LFT's; Complete Time: 10:18 [facility] 07/19 08:58 Order name: Magnesium; Complete Time: 10:18 [facility] 07/19 08:58 Order name: NT PRO-BNP; Complete Time: 10:18 [facility] 07/19 08:58 Order name: PT-INR; Complete Time: 10:18 [facility] 07/19 08:58 Order name: Troponin HS; Complete Time: 10:18 [facility] 07/19 08:58 Order name: Lipase; Complete Time: 10:18 [facility] 07/19 08:58 Order name: Urinalysis w/ reflexes; Complete Time: 10:59 [facility] 07/19 10:08 Order name: CREATININE WHOLE BLOOD; Complete Time: 10:18 [facility] 07/19 08:58 Order name: XRAY Chest (1 view); Complete Time: 10:18 [facility] 07/19 08:58 Order name: CT Head Angio; Complete Time: 10:18 [facility] 07/19 08:58 Order name: CT Neck Angio; Complete Time: 10:18 [facility] 07/19 08:58 Order name: CT Abd/Pelvis - PO Contrast Only; Complete Time: 10:18 [facility] 07/19 09:21 Order name: CT; Complete Time: 10:18 [facility] 07/19 11:20 Order name: Brain Wo Cont; Complete Time: 12:19 [facility] 12 08:58 Order name: Cardiac monitoring; Complete Time: 09:08 [facility] 07/19 08:58 Order name: EKG - Nurse/Tech; Complete Time: 09:39 [facility] 07/19 08:58 Order name: IV Saline Lock; Complete Time: 09:08 [facility] 07/19 08:58 Order name: Labs collected and sent; Complete Time: 09:39 [facility] 07/19 08:58 Order name: O2 Per Protocol; Complete Time: 09:09 [facility] 07/19 08:58 Order name: O2 Sat Monitoring; Complete Time: 09:09 [facility] EC:49 Rate is 54 beats/min. Rhythm is regular. QRS [place] is Normal. CA interval is normal. QRS baljit interval is normal. QT interval is normal. No Q waves. T waves are Normal. No ST changes noted. Clinical impression: Sinus bradycardia and No evidence of ischemia. Interpreted by me. Reviewed by me. Administered Medications: 09:02 Drug: NS 0.9% IV 1000 ml IV at 1 bolus Per protocol; to be given as a bolus over 60 aa5 minutes Route: IV; Rate: 1 bolus; Site: right antecubital; 10:18 Follow up: IV Status: Completed infusion; IV Intake: 1000ml aa5 09:32 Drug: Ondansetron IVP 4 mg IVP once; over 2 minutes Route: IVP; Site: right antecubital;aa5 10:15 Follow up: Response: No adverse reaction; Nausea is decreased aa5 09:32 Drug: foLIC Acid IVPB 1 mg IVPB once Route: IVPB; Site: right antecubital; aa5 09:55 Drug: Dulcolax CA Suppository 10 mg CA once Route: CA; aa5 10:19 Follow up: Response: No adverse reaction aa5 10:18 Drug: Lactulose PO 30 grams 45 ml PO once Volume: 45 ml; Route: PO; aa5 10:38 Follow up: Response: No adverse reaction aa5 10:18 Drug: Meclizine PO 50 mg PO once Route: PO; aa5 10:38 Follow up: Response: No adverse reaction aa5 10:38 Drug: Ativan IVP 1 mg IVP once Route: IVP; Site: right antecubital; aa5 10:42 Follow up: Response: No adverse reaction aa5 Disposition Summary: 07/19/24 12:19 Discharge Ordered Notes: Location: Home baljit Problem: new baljit Symptoms: have improved baljit Condition: Stable baljit Diagnosis - Dizziness and giddiness baljit - Benign paroxysmal vertigo, unspecified ear baljit - Coagulation defect, unspecified baljit - Vomiting baljit - Constipation baljit - Diaphragmatic hernia without obstruction or gangrene - KNOWN FINDING baljit - Abnormal findings on diagnostic imaging of other specified body structures - baljit BILATERAL THYROID NODULES Followup: baljit - With: Private Physician - When: 2 - 3 days - Reason: Recheck today's complaints, Continuance of care, Re-evaluation by your physician Followup: baljit - With: Feliberto Brito MD - When: 2 - 3 days - Reason: Recheck today's complaints, Re-evaluation by your physician Followup: baljit - With: Messi Gabriel MD - When: 2 - 3 days - Reason: Recheck today's complaints, Re-evaluation by your physician Discharge Instructions: - Discharge Summary Sheet baljit - Benign Positional Vertigo baljit - Constipation, Adult baljit - Dizziness baljit - Vertigo baljit - Constipation, Adult, [id number] baljit - Vertigo, [id number] baljit - Incidental Abnormal Radiological Finding baljit - Dizziness, [id number] [facility] Forms: - Medication Reconciliation Form [facility] - Antibiotic Education baljit - Prescription Opioid Use baljit - Patient Portal Instructions [facility] - Leadership Thank You Letter [facility] Prescriptions: - Dulcolax (bisacodyl) 10 mg Rectal suppository - insert 1 suppository RECTAL route daily for 5 days; 5 suppository; Refills: 0, [facility] Product Selection Permitted - ondansetron 4 mg Oral Tablet,disintegrating - take 1 tablet ORAL route every 6-8 hours for 5 days; 20 tablet; Refills: 0, [facility] Product Selection Permitted - Meclizine 25 mg Oral Tablet - take 1 tablet ORAL route every 8 hours As needed; 30 tablet; Refills: 0, [facility] Product Selection Permitted - Lactulose 10 gram/15 mL Oral solution - take 30 milliliters ORAL route once daily; 150 milliliter; Refills: 0, Product baljit Selection Permitted - Folic Acid 1 mg Oral Tablet - take 1 tablet ORAL route once daily; 30 tablet; Refills: 0, Product Selection baljit Permitted Signatures: Dispatcher [employer] EDIsac Tovar MD MD cha Calderon, Audri, RN RN aa5 Corrections: (The following items were deleted from the chart) 08:51 08:50 PSHx: hernia repair sx (hip replacement); aa5 aa5 08:58 08:58 BASIC METABOLIC PANEL+C.LAB.BRZ ordered. EDMS EDMS 08:58 08:58 CBC+H.LAB.BRZ ordered. EDMS EDMS 08:58 08:58 HEPATIC FUNCTION+C.LAB.BRZ ordered. EDMS EDMS 08:58 08:58 MAGNESIUM+C.LAB.BRZ ordered. EDMS EDMS 08:58 08:58 PROBNP+C.LAB.BRZ ordered. EDMS EDMS 08:58 08:58 PROTIME (+INR)+COAG.LAB.BRZ ordered. EDMS EDMS 08:58 08:58 Troponin High Sensitivity+C.LAB.BRZ ordered. EDMS EDMS 08:58 08:58 LIPASE+C.LAB.BRZ ordered. EDMS EDMS 08:58 08:58 Urinalysis+U.LAB.BRZ ordered. EDMS EDMS 08:58 08:58 Chest Single View+RAD.RAD.BRZ ordered. EDMS EDMS 08:58 08:58 CT-STROKE BRAIN W/O CONTRAST+CT.RAD.BRZ ordered. EDMS EDMS 08:59 08:59 Head Angio+CT.RAD.BRZ ordered. EDMS EDMS 08:59 08:59 Neck Angio+CT.RAD.BRZ ordered. EDMS EDMS 08:59 08:59 MR STROKE PROTOCOL+MRI.RAD.BRZ ordered. EDMS EDMS 08:59 08:59 Abdomen Pelvis W Con+CT.RAD.BRZ ordered. EDMS EDMS
[2024-07-19 14:18] VITALS: TEMP 97.2
[2024-07-19 14:21] VITALS: BP 126/69; O2SAT 98
--- NOTE | 2024-07-20 15:47 | EKG ---
Test Date: 2024-07-19 Test Time: 09:31:43 Social Staff Worker: NIVIA MEASUREMENT RESULTS: Intervals: Rate: 54 DC: 206 QRSD: 158 QT: 476 QTc: 451 Van: P: 14 DC: 206 QRS: -46 T: 129 INTERPRETIVE STATEMENTS: Sinus bradycardia Left axis deviation Left bundle branch block Abnormal ECG Compared to ECG 07/25/2023 17:15:50 Sinus rhythm no longer present First degree AV block no longer present Electronically Signed On 07-20-24 15:46:05 [employer]OMATION SPECIALIST by Brina Ortega
== END 2024-07-19 14:01 | disposition home or self-care (01) ==
LOC: ER 08:44
DX: H81.10 Benign paroxysmal vertigo, unspecified ear (principal); E78.5 Hyperlipidemia, unspecified; I10 Essential (primary) hypertension; I25.2 Old myocardial infarction; K59.00 Constipation, unspecified; R11.10 Vomiting, unspecified; D68.9 Coagulation defect, unspecified; E04.2 Nontoxic multinodular goiter; K46.9 Unspecified abdominal hernia without obstruction or gangrene
CPT/HCPCS: 96361; 93005; 85025; 81001; 80048; 36415; 83735; 85610; 82565; 80076; 84484; 83690; 83880; 70496; 70498; 74177; 70450; 71045; 70551; 96375; 96374; 99285; Q9967; J8597; J2405; J7030

== ENCOUNTER 2024-12-31 13:06 | Observation (INO) | payer OTHER ==
--- OUTSIDE RECORDS SUMMARY | 2024-12-31 13:09 | XMS REPORT | Continuity of Care Document ---
Author Name Unknown Address [address] [facility]. [address] [place] [address] [facility] Address [address] [facility] [address] [place] [address] Care Team Providers Care Returns Supervisor Name Role Phone Messi Gabriel Attending Clinician Unavailable Roman Attending Clinician Unavailable Messi Gabriel Admitting Clinician Unavailable Roman Admitting Clinician Unavailable Payers Payer Name Policy Type Policy Number Effective Date Expirati on Date Source [employer] (MEDICARE REPLACEMENT PPO) [id number] 2023 00:00:00 Problems Condition Name Condition Details Condition Category Status Onset Date Resolution Date Last Treatment Date Treating Clinician Comments Source Lower urinary tract symptoms due to benign prostatic hypertroph y Lower Urinary Tract Symptoms Due to Benign Prostatic Hypertroph y Problem Active 08-16 00:00: 00 [facility] [id number] 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 Problem Common [facility] [id number] Other retention of urine Problem [facility] [id number] Primary osteoarthr itis of right knee Problem [facility] [id number] Primary osteoarthr itis of left knee Problem [facility] Arthritis of knee Arthritis of knee Problem [facility] Osteoarthr itis of knee Unilateral primary osteoarthr itis, unspecifie d knee Problem [facility] Allergies, Adverse Reactions, Alerts Allergy Name Allergy Type Status Severity Reaction(s) Onset Date Inactive Date Treating Clinician Comments Source [place] Active Unknown Commo n [facility] Social History Social Habit Start Date Stop Date Quantity Comments Source History of Tobacco Use [facility] Sex Assigned At [facility] Smoking Status Start Date Stop Date Source Never Smoker [facility] Medications Ordered Medication Name Filled Medication Name Start Date Stop Date Current Medication? Ordering Clinician Indication Dosage Frequency Signature (SIG) Comments Components Source BUPivacaine HCl BUPivacaine HCl 10-03 00:00: 00 No 4mL [facility] Finasteride 5 MG Finasteride 5 MG 2022-08 00:00: 00 No 1{table t} QD Finasterid e 5 MG Flomax 0.4 MG Flomax 0.4 MG 2022-08 00:00: 00 No 1{capsu le} QD Flomax 0.4 MG Kenalog (Triamcinol one) Kenalog (Triamcinol one) 2022-08 00:00: 00 No 1mL [facility] Bupivicaine Morgan Bupivicaine Morgan 02-28 00:00: 00 No 4mL [facility] Synvisc Synvisc 02-28 00:00: 00 No 2mL [facility] Metoprolol Succinate 50 MG Metoprolol Succinate 50 [...] 1 capsule every day by oral route. [facility] atorvastati n 40 mg tablet TAKE 1 TABLET BY MOUTH EVERY DAY atorvastati n 40 mg tablet TAKE 1 TABLET BY MOUTH EVERY DAY No atorvastat in 40 mg tablet TAKE 1 TABLET BY MOUTH EVERY DAY [facility] Eliquis 5 mg tablet TAKE 1 TABLET BY MOUTH TWICE A DAY Eliquis 5 mg tablet TAKE 1 TABLET BY MOUTH TWICE A DAY No Eliquis 5 mg tablet TAKE 1 TABLET BY MOUTH TWICE A DAY [facility] Farxiga 5 mg tablet TAKE 1 TABLET BY MOUTH DAILY IN MORNING WITH BREAKFAST Farxiga 5 mg tablet TAKE 1 TABLET BY MOUTH DAILY IN MORNING WITH BREAKFAST No Farxiga 5 mg tablet TAKE 1 TABLET BY MOUTH DAILY IN MORNING WITH BREAKFAST [facility] finasteride 5 mg tablet TAKE 1 TABLET BY MOUTH EVERY DAY finasteride 5 mg tablet TAKE 1 TABLET BY MOUTH EVERY DAY No finasterid e 5 mg tablet TAKE 1 TABLET BY MOUTH EVERY DAY [facility] losartan 25 mg tablet TAKE 1 TABLET BY MOUTH EVERY DAY losartan 25 mg tablet TAKE 1 TABLET BY MOUTH EVERY DAY No losartan 25 mg tablet TAKE 1 TABLET BY MOUTH EVERY DAY [facility] Lumigan 0.01 % eye drops PLACE 1 DROP INTO BOTH EYES AT BEDTIME Lumigan 0.01 % eye drops PLACE 1 DROP INTO BOTH EYES AT BEDTIME No Lumigan 0.01 % eye drops PLACE 1 DROP INTO BOTH EYES AT BEDTIME [facility] tamsulosin 0.4 mg capsule TAKE 1 CAPSULE BY MOUTH EVERY DAY tamsulosin 0.4 mg capsule TAKE 1 CAPSULE BY MOUTH EVERY DAY No tamsulosin 0.4 mg capsule TAKE 1 CAPSULE BY MOUTH EVERY DAY [facility] metoprolol succinate ER 25 mg tablet,exte nded release 24 hr TAKE 1 TABLET BY MOUTH EVERY DAY metoprolol succinate ER 25 mg tablet,exte nded release 24 hr TAKE 1 TABLET BY MOUTH EVERY DAY No metoprolol succinate ER 25 mg tablet,ext ended release 24 hr TAKE 1 TABLET BY MOUTH EVERY DAY [facility] Synvisc 16 mg/2 mL intra-artic ular syringe Synvisc 16 mg/2 mL intra-artic ular syringe No Synvisc 16 mg/2 mL intra-carlie cular syringe [facility] metoclopram jenn 10 mg tablet 3 TABLETS BY MOUTH DIRECTED USE DIRECTED PER YOUR COLONOSCOPY PREP PACKET metoclopram jenn 10 mg tablet 3 TABLETS BY MOUTH DIRECTED USE DIRECTED PER YOUR COLONOSCOPY PREP PACKET No metoclopra mide 10 mg tablet 3 TABLETS BY MOUTH DIRECTED USE DIRECTED PER YOUR COLONOSCOP Y PREP PACKET [facility] sodium,pota ssium,mag sulfates 17.5 gram-3.13 gram-1.6 gram oral soln 1 UNIT BY MOUTH DIRECTED USED DIRECTED BY YOUR COLONOSCOPY PACKET INSTRUCTION S sodium,pota ssium,mag sulfates 17.5 gram-3.13 gram-1.6 gram oral soln 1 UNIT BY MOUTH DIRECTED USED DIRECTED BY YOUR COLONOSCOPY PACKET INSTRUCTION S No sodium,pot assium,mag sulfates 17.5 gram-3.13 gram-1.6 gram oral soln 1 UNIT BY MOUTH DIRECTED USED DIRECTED BY YOUR COLONOSCOP Y PACKET INSTRUCTIO NS [facility] Vital Signs Vital Name Observation Time Observation Value Comments S our BP Diastolic 2024-08-20 00:00:00 62 mm[Hg] Elizabeth [facility] BP Systolic 2024-08-20 00:00:00 110 mm[Hg] [place] [facility] BMI (Body Mass Index) 2024-08-20 00:00:00 28 kg/m2 [facility] Body Weight 2024-08-20 00:00:00 212 [lb_av] Elizabeth [facility] Height 2024-08-20 00:00:00 73 [in_i] [facility] [facility] height 2024-05-08 09:30:00 73 [in_i] Commo n [facility] weight 2024-05-08 09:30:00 214.5 [lb_av] Co mmon [facility] bmi 2024-05-08 09:30:00 28.3 kg/m2 Commo n [facility] blood pressure systolic 2024-05-08 09:30:00 124 mm[Hg] Common [facility] blood pressure diastolic 2024-05-08 09:30:00 59 mm[Hg] Common [facility] BMI (Body Mass Index) 2024-03-05 00:00:00 28 kg/m2 [place] [facility] Body Weight 2024-03-05 00:00:00 212 [lb_av] Elizabeth servin [facility] Height 2024-03-05 00:00:00 73 [in_i] Audra couch [facility] height 2024-01-09 09:15:00 73 [in_i] Commo n [facility] weight 2024-01-09 09:15:00 224 [lb_av] Comm on [facility] temperature 2024-01-09 09:15:00 98.4 [degF] Com [facility] bmi 2024-01-09 09:15:00 29.55 kg/m2 Comm on [facility] blood pressure systolic 2024-01-09 09:15:00 134 mm[Hg] Common [facility] blood pressure diastolic 2024-01-09 09:15:00 78 mm[Hg] Common [facility] height 2023-10-17 09:30:00 73 [in_i] Commo n [facility] weight 2023-10-17 09:30:00 224 [lb_av] Comm on [facility] temperature 2023-10-17 09:30:00 98.4 [degF] Com [facility] bmi 2023-10-17 09:30:00 29.55 kg/m2 Comm on [facility] blood pressure systolic 2023-10-17 09:30:00 124 mm[Hg] Common [facility] blood pressure diastolic 2023-10-17 09:30:00 82 mm[Hg] Common [facility] height 2023-10-10 15:00:00 73 [in_i] Commo n [facility] weight 2023-10-10 15:00:00 224 [lb_av] Comm on [facility] temperature 2023-10-10 15:00:00 98.0 [degF] Com mon [facility] bmi 2023-10-10 15:00:00 29.55 kg/m2 Comm on [facility] blood pressure systolic 2023-10-10 15:00:00 126 mm[Hg] Common Spiri t [facility] blood pressure diastolic 2023-10-10 15:00:00 82 mm[Hg] [facility] height 2023-10-03 09:30:00 73 [in_i] Commo n [facility] weight 2023-10-03 09:30:00 224 [lb_av] Comm on [facility] temperature 2023-10-03 09:30:00 98.1 [degF] Com mon [facility] bmi 2023-10-03 09:30:00 29.55 kg/m2 Comm on [facility] blood pressure systolic 2023-10-03 09:30:00 122 mm[Hg] Common [facility] blood pressure diastolic 2023-10-03 09:30:00 78 mm[Hg] Common [facility] height 2023-09-14 09:30:00 73 [in_i] Commo n [facility] weight 2023-09-14 09:30:00 224 [lb_av] Comm on [facility] temperature 2023-09-14 09:30:00 98.6 [degF] Com [facility] bmi 2023-09-14 09:30:00 29.55 kg/m2 Comm on [facility] blood pressure systolic 2023-09-14 09:30:00 124 mm[Hg] Common [facility] blood pressure diastolic 2023-09-14 09:30:00 76 mm[Hg] Common [facility] BMI (Body Mass Index) 2023-09-06 00:00:00 28 kg/m2 [facility] Body Weight 2023-09-06 00:00:00 212 [lb_av] [facility] 2023-09-06 00:00:00 73 [in_i] [place] [facility] BMI (Body Mass Index) 2023-08-22 00:00:00 28 kg/m2 [place] [facility] Height 2023-08-22 00:00:00 73 [in_i] [place] [facility] Body Weight 2023-08-22 00:00:00 212 [lb_av] [facility] BP Diastolic 2023-08-16 00:00:00 76 mm[Hg] [facility] BMI (Body Mass Index) 2023-08-16 00:00:00 28 kg/m2 [place] [facility] BP Systolic 2023-08-16 00:00:00 122 mm[Hg] [place] [facility] Body Weight 2023-08-16 00:00:00 212 [lb_av] [facility] Height 2023-08-16 00:00:00 73 [in_i] [place] [facility] height 2023-08-10 15:45:00 73 [in_i] Commo n [facility] weight 2023-08-10 15:45:00 216.0 [lb_av] Co mmon [facility] temperature 2023-08-10 15:45:00 98.2 [degF] Com mon [facility] bmi 2023-08-10 15:45:00 28.49 kg/m2 Comm on [facility] oximetry 2023-08-10 15:45:00 96 % Commo n [facility] respiratory rate 2023-08-10 15:45:00 18 /min Common [facility] blood pressure systolic 2023-08-10 15:45:00 105 mm[Hg] Common [facility] blood pressure diastolic 2023-08-10 15:45:00 56 mm[Hg] Common [facility] Encounters Start Date/Time End Date/Time Encounter Type Admission Type Attending Clinicians Care Facility Care Department Encounter ID Source 2024-09-18 14:03:01 Outpatient Messi Gabriel [facility] [id number] [facility] 2023-09-29 14:50:02 Outpatient [facility] [id number] [facility] 2023-09-05 13:48:01 Outpatient STLMLC [facility] [id number] [facility] 2023-08-10 15:40:01 Outpatient STLMLC ST[facility]C [id number] [facility] 2023-08-03 09:53:01 Outpatient STLMLC STLMLC [id number] [facility] 2024-08-20 00:00:00 2024-08-20 00:00:00 Marino Colindres MD: [id number] [address] , Ph. [facility] [id number] [facility] 2024-05-08 00:00:00 2024-05-08 00:00:00 OFFICE VISIT ESTAB PT LEVEL 4 STLMLC STLMLC [id number] [facility] 2024-03-05 00:00:00 2024-03-05 00:00:00 Marino Colindres MD: [id number] [address] , [facility]. [facility] [id number] [facility] 2024-01-09 00:00:00 2024-01-09 00:00:00 (F/U) Follow Up Visit STLMLC STLMLC [id number] [facility] 2023-10-17 00:00:00 2023-10-17 00:00:00 (IN/ASP) INJ ASP STLMLC STLMLC [id number] [facility] 2023-10-10 00:00:00 2023-10-10 00:00:00 (IN/ASP) INJ ASP STLMLC STLMLC [id number] [facility] 2023-10-03 00:00:2023-10-03 00:00:00 (IN/ASP) INJ ASP STLMLC STLMLC [id number] [facility] 2023-09-14 00:00:00 2023-09-14 00:00:00 (TEL) STLMLC STLMLC [id number] [facility] 2023-09-14 00:00:00 2023-09-14 00:00:00 OFFICE VISIT ESTAB PT LEVEL 4 STLMLC STLMLC [id number] [facility] 2023-09-08 00:00:00 2023-09-08 00:00:00 Outpatient Schiffman_Z [facility] [id number] [facility] 2023-09-06 00:00:00 2023-09-06 00:00:00 Outpatient Schiffman_Z HMU HMU [id number] [facility] 2023-09-06 00:00:00 2023-09-06 00:00:00 Marino Colindres MD: [address] [address] , Ph. [facility] [place] - [id number] [facility] 2023-09-02 00:00:00 2023-09-02 00:00:00 Outpatient Schiffman_Z [facility] HMU [id number] [facility] 2023-08-31 00:00:00 2023-08-31 00:00:00 (TEL) STLMLC STLMLC [id number] [facility] 2023-08-27 00:00:00 2023-08-27 00:00:00 Outpatient Schiffman_Z [facility] HMU [id number] [facility] 2023-08-22 00:00:00 2023-08-22 00:00:00 Marino Colindres MD: [id number] [phone] , Ph. [facility] [id number] [facility] 2023-08-20 00:00:00 2023-08-20 00:00:00 Outpatient Roman [facility] [id number] [facility] 2023-08-16 00:00:00 2023-08-16 00:00:00 Outpatient Roman [facility] [id number] [facility] 2023-08-16 00:00:00 2023-08-16 00:00:00 Marino Colindres MD: [id number] [facility] [address], [place] [address] , Ph. [facility] [place] - [id number] [facility] 2023-08-15 00:00:00 2023-08-15 00:00:00 Outpatient Roman [facility] [id number] [facility] 2023-08-10 00:00:00 2023-08-10 00:00:00 OFFICE VISIT ESTAB PT LEVEL 4 [facility]MLC [facility] [id number] [facility] Results Test Description Test Time Test Comments Results Result Co mments Source [facility] UrologyBacteria identified in Urine by [id number] 00:00:00 [facility]
[2024-12-31 13:51] LABS: Absolute Eosinophils 0.1 K/uL (0-0.5); Absolute Lymphocytes (CBC) 1.2 K/uL (0.7-4.9); Absolute Monocytes 0.8 K/uL (0.1-1.3); Absolute Neutrophil 4.6 K/uL (1.8-8.0); Basophils % 0.6 % (0-1.3); Hematocrit 31.5 % (39.6-49.0); Lymphocytes % 17.9 % (15.3-44.8); MCH 34.2 pg (27.0-35.0); MCV 97.7 fL (80-100); MPV 8.6 fL (7.6-11.3); Monocytes % 11.2 % (3.3-12.3); Neutrophils % 68.3 % (41.7-73.7); Nucleated Red Blood Cells % 0.1 % (0-0); Platelets 119 thou/uL (152-406); RBC Red Blood Cell Count 3.22 M/uL (4.33-5.43); Red Cell Distribution Width 14.7 % (12.1-15.2)
[2024-12-31 14:13] LABS: Albumin 2.7 g/dL (3.4-5.0); Albumin/Globulin Ratio 0.5 (1.1-1.8); Anion Gap 9.1 mEq/L (5.0-15.0); Bilirubin Direct 0.3 mg/dL (0-0.2); Bilirubin Indirect, Calculated 0.3 mg/dL (0.2-0.8); Bilirubin Total 0.6 mg/dL (0.2-1.0); Globulin 5.3 g/dL (2.3-3.5); Potassium 4.1 mEq/L (3.5-5.1)
--- NOTE | 2024-12-31 14:58 | RAD REPORT ---
Procedure: Chest Single View HISTORY: Cough COMPARISON: 2023 FINDINGS: Pulmonary vascular congestion is present. Small pleural effusions. The heart is moderately enlarged. Large hiatal hernia
--- NOTE | 2024-12-31 14:58 | RAD REPORT ---
EXAMINATION: CT ABDOMEN AND PELVIS WITH CONTRAST CLINICAL INDICATION: Abdominal pain TECHNIQUE: CT abdomen and pelvis was performed, after the administration of 100 cc Isovue-300.. Sagit polo and coronal reconstructions were obtained. One or more of the following dose reduction techniques were used: Automated exposure control, adjustment of the mA and kV according to patient si ze, and iterative reconstruction. Unless otherwise specified, incidental findings do not require dedicated imaging follow-up. [id number]. Oral contrast was not given which limits evaluation of bowel and appendix. COMPARISON: .2023 FINDINGS: Large diaphragmatic hernia containing stomach again demonstrated. Chronic volvulus noted. Small right and tiny left pleural effusions Cholelithiasis. Gallbladder wall appears mildly thickened. Liver, spleen, pancreas, and adrenals appear unremarkable. Renal cysts. Normal appendix. Prostate gland is markedly enlarged. Left hip arthroplasty. Postsurgical changes inguinal hernia repair. Trace amount of ascites. Edema within the subcutaneous tissues. No evidence of diverticulitis.. 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 Thickened gallbladder wall may be related to hypoalbuminemia or cholecystitis.
--- NOTE | 2024-12-31 16:47 | EDPHYS ---
Physician Documentation [facility] Name: Samuel Portillo Age: 84 yrs Sex: Male : 1940 Arrival Date: 12/31/2024 Time: 13:06 Bed 24 Private MD: ED Physician Zane Nunez HPI: 12/31 16:56 This 84 yrs old Male presents to ER via Wheelchair with complaints of Shortness Of rt Breath, Nausea. 17:06 Patient presents to the ED with about 2 days of shortness of breath, worse with rt exertion. He also reports an intermittent lower abdominal pain, worse when he bends over, denies any current abdominal pain but does report ongoing shortness of breath. Denies chest pain, acute complaints, symptoms are moderate in severity, no other aggravating alleviating factors.. Historical: - Allergies: 13:14 No Known Allergies; hb - PMHx: 13:14 Hyperlipidemia; Hypertension; Myocardial infarction; Atrial fibrillation; hb - PSHx: 13:14 hernia repair sx; hip replacement; hb - Immunization history:: Adult Immunizations up to date. - Infectious Disease History:: Denies. - Social history:: Smoking status: Patient denies any tobacco usage or history of. - Family history:: not pertinent. ROS: 17:06 Constitutional: Negative for fever, chills, and weight loss, Cardiovascular: Negative rt for chest pain, palpitations, and edema, MS/Extremity: Negative for injury and deformity, Skin: Negative for injury, rash, and discoloration, Neuro: Negative for headache, weakness, numbness, tingling, and seizure, 17:06 Respiratory: Positive for dyspnea on exertion, shortness of breath, 17:06 Abdomen/GI: Positive for abdominal pain, Negative for nausea and vomiting, Exam: 17:06 Constitutional: This is a well developed, well nourished patient who is awake, alert, rt and in no acute distress. Head/Face: Normocephalic, atraumatic. Chest/axilla: Normal chest wall appearance and motion. Nontender with no deformity. No lesions are appreciated. Cardiovascular: Regular rate and rhythm with a normal S1 and S2. No gallops, murmurs, or rubs. Normal PMI, no JVD. No pulse deficits. Skin: Warm, dry with normal turgor. Normal color with no rashes, no lesions, and no evidence of cellulitis. MS/ Extremity: Pulses equal, no cyanosis. Neurovascular intact. Full, normal range of motion. Neuro: Awake and alert, GCS 15, oriented to person, place, time, and situation. Cranial nerves II-XII grossly intact. Motor strength 5/5 in all extremities. Sensory grossly intact. Cerebellar exam normal. Normal gait. 17:06 ECG was reviewed by the Attending Physician. 17:06 Respiratory: Bibasilar crackles, no respiratory distress, 17:06 Abdomen/GI: No focal areas of abdominal tenderness, no guarding, rebound, distention, Vital Signs: 13:12 BP 122 / 79; Pulse 69; Resp 18; Temp 98.1(O); Pulse Ox 98% on R/A; Weight 95.71 kg; hb Height 6 ft. 1 in. ; Pain 3/10; 14:28 BP 117 / 74; Pulse 59; Resp 15; Pulse Ox 95% ; bp 15:39 BP 129 / 80; Pulse 61; Resp 18; Pulse Ox 93% on R/A; ld1 18:05 BP 128 / 82; Pulse 68; Resp 18; Pulse Ox 94% on R/A; ld1 19:21 BP 133 / 79; Pulse 65; Resp 18; Temp 98.1; Pulse Ox 95% ; Pain 0/10; bm8 20:42 BP 114 / 93; Pulse 63; Resp 19; Pulse Ox 97% on R/A; kd3 13:12 Body Mass Index 27.84 (95.71 kg, 185.42 cm) hb 13:12 Pain Scale: Adult hb 19:21 Pain Scale: Adult bm8 Sanford Coma Score: 19:21 Eye Response: spontaneous(4). Motor Response: obeys commands(6). Verbal Response: bm8 oriented(5). Total: 15. MDM: 13:16 Medical Screening Exam initiated rt 18:48 Differential diagnosis: CHF, pneumonia. Data reviewed: vital signs, nurses notes, lab rt test result(s), EKG, radiologic studies. Consideration of Admission/Observation Patient was admitted/placed on observation. Management of patient was discussed with the following: Primary Care Provider: Agrees to admit. I considered the following discharge prescriptions or medication management in the emergency department Medications were administered in the Emergency Department. See MAR. Independent interpretation of the following test(s) in the Emergency Department X-Ray: My interpretation is Pulmonary edema seen on my interpretation of x-ray images. Care significantly affected by the following chronic conditions: Hypertension, CAD. Counseling: I had a detailed discussion with the patient and/or guardian regarding the historical points, exam findings, and any diagnostic results supporting the discharge/admit diagnosis, lab results, radiology results, the need for further work-up and treatment in the hospital. Response to treatment: the patient's symptoms have mildly improved after treatment. 12/31 13:23 Order name: Basic Metabolic Panel; Complete Time: 14:30 rt 12/31 13:23 Order name: CBC with Diff; Complete Time: 14:30 rt 12/31 13:23 Order name: LFT's; Complete Time: 14:30 rt 12/31 13:23 Order name: NT PRO-BNP; Complete Time: 14:30 rt 12/31 13:23 Order name: Troponin HS; Complete Time: 14:30 rt 12/31 13:23 Order name: Lipase; Complete Time: 14:30 rt 01/01 04:55 Order name: CBC with Automated Diff EDIA 01/01 05:16 Order name: Comprehensive Metabolic Panel EDIA 01/01 05:16 Order name: Troponin High Sensitivity EDIA 01/01 05:16 Order name: Thyroid Stimulating Hormone EDIA 01/01 05:28 Order name: T4 Free EDIA 12/31 13:23 Order name: XRAY Chest (1 view); Complete Time: 15:01 rt 12/31 13:23 Order name: CT Abd/Pelvis - IV Contrast Only; Complete Time: 15:01 rt 12/31 13:23 Order name: EKG; Complete Time: 13:24 rt 12/31 16:52 Order name: CONS Physician Consult EDIA 12/31 13:23 Order name: Cardiac monitoring; Complete Time: 13:58 rt 12/31 13:23 Order name: EKG - Nurse/Tech; Complete Time: 13:58 rt 12/31 13:23 Order name: IV Saline Lock; Complete Time: 13:58 rt 12/31 13:23 Order name: Labs collected and sent; Complete Time: 13:58 rt 12/31 13:23 Order name: O2 Per Protocol; Complete Time: 13:58 rt 12/31 13:23 Order name: O2 Sat Monitoring; Complete Time: 13:58 rt EC:06 Rate is 59 beats/min. Rhythm is regular, 1st Degree Block with No ectopy, Nonspecific rt interventricular block. Left axis deviation noted. MN interval is prolonged at 150 msec. QRS interval is normal. No Q waves. No ST changes noted. Administered Medications: 16:45 Drug: Furosemide IVP 20 mg IVP once; give over 2 minutes Route: IVP; Site: right bp forearm; 19:24 Follow up: Response: No adverse reaction bm8 Disposition Summary: 12/31/24 16:47 Hospitalization Ordered Notes: Hospitalization Status: Inpatient Admission rt Provider: Messi Gabriel rt Condition: Stable rt Problem: new rt Symptoms: have improved rt Bed/Room Type: Standard rt Location: [facility] ER HOLD(12/31/24 18:42) jl7 Room Assignment: ERHOLD-(12/31/24 18:42) jl7 Diagnosis - Pulmonary edema rt - Abdominal pain rt Forms: - Medication Reconciliation Form rt - SBAR form rt - Leadership Thank You Letter rt Signatures: Dispatcher [employer] EDMS Alicia Jaquez, RN RN Sarah Castro RN RN jl7 Lukas Ashley RN RN Zane Desir MD MD rt Jp Lloyd RN bm8 Corrections: (The following items were deleted from the chart) 13:24 13:23 BASIC METABOLIC PANEL+C.LAB.BRZ ordered. EDMS EDMS 13:24 13:23 CBC+H.LAB.BRZ ordered. EDMS EDMS 13:24 13:23 HEPATIC FUNCTION+C.LAB.BRZ ordered. EDMS EDMS 13:24 13:23 PROBNP+C.LAB.BRZ ordered. EDMS EDMS 13:24 13:23 Troponin High Sensitivity+C.LAB.BRZ ordered. EDMS EDMS 13:24 13:23 LIPASE+C.LAB.BRZ ordered. EDIA EDMS 18:42 16:47 Telemetry/MedSurg (Inpatient) rt jl7 18:42 16:47 rt jl7
--- NOTE | 2024-12-31 16:47 | ER ---
Nurse's Notes [facility] Name: Samuel Portillo Age: 84 yrs Sex: Male : 1940 Arrival Date: 12/31/2024 Time: 13:06 Bed 24 Private MD: Diagnosis: Pulmonary edema;Abdominal pain Presentation: 12/31 13:12 Chief complaint: SOB, nausea, lower abdominal pain, and malaise x 2-3 days. Coronavirus hb screen: At this time, the client does not indicate any symptoms associated with coronavirus-19. Ebola Screen: No symptoms or risks identified at this time. Initial Sepsis Screen: Does the patient meet any 2 criteria? No. Patient's initial sepsis screen is negative. Does the patient have a suspected source of infection? No. Patient's initial sepsis screen is negative. Risk Assessment: Do you want to hurt yourself or someone else? Patient reports no desire to harm self or others. Onset of symptoms was December 29, 2024. 13:12 Method Of Arrival: Wheelchair hb 13:12 Acuity: WESLEY 3 hb Triage Assessment: 13:15 General: Appears in no apparent distress. Behavior is calm, cooperative, appropriate bp for age. Pain: Denies pain. EENT: No deficits noted. Neuro: No deficits noted. Cardiovascular: Rhythm is sinus rhythm. Respiratory: Reports shortness of breath Onset: The symptoms/episode began/occurred at an unknown time. the patient has mild shortness of breath. GI: No signs and/or symptoms were reported involving the gastrointestinal system. : No signs and/or symptoms were reported regarding the genitourinary system. Derm: No deficits noted. Musculoskeletal: No deficits noted. Historical: - Allergies: 13:14 No Known Allergies; hb - PMHx: 13:14 Hyperlipidemia; Hypertension; Myocardial infarction; Atrial fibrillation; hb - PSHx: 13:14 hernia repair sx; hip replacement; hb - Immunization history:: Adult Immunizations up to date. - Infectious Disease History:: Denies. - Social history:: Smoking status: Patient denies any tobacco usage or history of. - Family history:: not pertinent. Screenin:15 [facility] ED Fall Risk Assessment (Adult) History of falling in the last 3 months, bp including since admission No falls in past 3 months (0 pts) Confusion or Disorientation No (0 pts) Intoxicated or Sedated No (0 pts) Impaired Gait No (0 pts) Mobility Assist Device Used No (0 pt) Altered Elimination No (0 pt) Score/Fall Risk Level 0 - 2 = Low Risk Oriented to surroundings. Abuse screen: Denies threats or abuse. Denies injuries from another. Nutritional screening: No deficits noted. Tuberculosis screening: No symptoms or risk factors identified. Assessment: 13:15 General: Appears in no apparent distress. comfortable, Behavior is calm, cooperative, bp appropriate for age. Pain: Denies pain. 14:29 Reassessment: No changes from previously documented assessment. Patient is alert, bp oriented x 3, equal unlabored respirations, skin warm/dry/pink. Cardiovascular: Rhythm is sinus bradycardia. Respiratory: Airway is patent Respiratory effort is even, unlabored, Breath sounds are coarse bilaterally. 15:39 Reassessment: Patient appears in no apparent distress at this time. No changes from ld1 previously documented assessment. Patient is alert, oriented x 3, equal unlabored respirations, skin warm/dry/pink. 19:21 Reassessment: Patient appears in no apparent distress at this time. Patient and/or bm8 family updated on plan of care and expected duration. Pain level reassessed. Patient is alert, oriented x 3, equal unlabored respirations, skin warm/dry/pink. Patient denies pain at this time. Patient states feeling better. Vital Signs: 13:12 BP 122 / 79; Pulse 69; Resp 18; Temp 98.1(O); Pulse Ox 98% on R/A; Weight 95.71 kg; hb Height 6 ft. 1 in. ; Pain 3/10; 14:28 BP 117 / 74; Pulse 59; Resp 15; Pulse Ox 95% ; bp 15:39 BP 129 / 80; Pulse 61; Resp 18; Pulse Ox 93% on R/A; ld1 18:05 BP 128 / 82; Pulse 68; Resp 18; Pulse Ox 94% on R/A; ld1 19:21 BP 133 / 79; Pulse 65; Resp 18; Temp 98.1; Pulse Ox 95% ; Pain 0/10; bm8 20:42 BP 114 / 93; Pulse 63; Resp 19; Pulse Ox 97% on R/A; kd3 13:12 Body Mass Index 27.84 (95.71 kg, 185.42 cm) hb 13:12 Pain Scale: Adult hb 19:21 Pain Scale: Adult bm8 Alejandro Coma Score: 19:21 Eye Response: spontaneous(4). Motor Response: obeys commands(6). Verbal Response: bm8 oriented(5). Total: 15. ED Course: 13:08 Patient arrived in ED. mr 13:11 Zane Nunez MD is Attending Physician. rt 13:14 Triage completed. hb 13:14 Arm band placed on. hb 13:15 Patient has correct armband on for positive identification. bp 13:33 Lukas Ashley, RN is Primary Nurse. bp 13:58 Initial lab(s) drawn, by me, sent to lab. EKG done, by ED staff, reviewed by Lukas Ashley RN. Inserted saline lock: 22 gauge in right forearm, using aseptic technique. Blood collected. Flushed with 10 mL NS. 14:03 XRAY Chest (1 view) In Process Unspecified. EDMS 14:39 CT Abd/Pelvis - IV Contrast Only In Process Unspecified. EDMS 16:46 Demond Gabriel MD is Hospitalizing Provider. rt 16:46 Messi Gabriel MD is Hospitalizing Provider. rt 19:21 Provided Education on: need for admission. bm8 19:21 Client placed on continuous cardiac and pulse oximetry monitoring. NIBP monitoring bm8 applied. cut lace machine operator on. Pulse ox on. NIBP on. Door closed. Noise minimized. Warm blanket given. Pillow given. Verbal reassurance given. Head of bed elevated. 19:21 No provider procedures requiring assistance completed. Patient admitted, IV remains in bm8 place. 21:32 Primary Nurse role handed off by Lukas Ashley, RN rv1 Administered Medications: 16:45 Drug: Furosemide IVP 20 mg IVP once; give over 2 minutes Route: IVP; Site: right bp forearm; 19:24 Follow up: Response: No adverse reaction bm8 Medication: 19:21 VIS not applicable for this client. bm8 Outcome: 16:47 Decision to Hospitalize by Provider. rt 19:21 Admitted to ER Hold. [facility] for further documentation. bm8 19:21 Condition: stable 19:21 Instructed on follow up and referral plans. the need for admit, Demonstrated understanding of follow-up care, medications, 01/01 07:26 Patient left the ED. ll1 Signatures: Dispatcher [employer] EDLA Charbel, Judith, Reg Reg mr JaquezAlicia, RN RN hb Lukas Ashley, RN RN Martha Dallas, RN RN ll1 Jennifer Bernal, SARITA RN ld1 Alie Wood, RN RN kd3 Zane Nunez MD MD rt Sury Mcfarland rv1 Jp Lloyd RN RN bm8 Corrections: (The following items were deleted from the chart) 12/31 19:23 19:21 Provided Education on: post er care. bm8 bm8
[2024-12-31] MEDS ORDERED: FUROSEMIDE 20 MG/ 2ML VIAL ONE (16:56)
[2024-12-31] MEDS ORDERED: ACETAMINOPHEN 500 MG TAB PO PRN (19:12)
[2024-12-31] MEDS ORDERED: ONDANSETRON 4 MG/2 ML VIAL IV PRN (19:12)
[2024-12-31 20:11] VITALS: BMI 27.8
[2024-12-31] MEDS: ATORVASTATIN 40 MG TAB PO SCH (21:00)
[2024-12-31] MEDS: APIXABAN 5 MG TABLET PO SCH (21:00)
[2024-12-31 21:06] VITALS: TEMP 97.2
[2025-01-01 04:50] LABS: Absolute Eosinophils 0.1 K/uL (0-0.5); Absolute Lymphocytes (CBC) 1.4 K/uL (0.7-4.9); Absolute Monocytes 0.7 K/uL (0.1-1.3); Absolute Neutrophil 3.6 K/uL (1.8-8.0); Basophils % 0.6 % (0-1.3); Eosinophils % 2.3 % (0-4.4); Hematocrit 30.4 % (39.6-49.0); Hemoglobin 10.8 g/dL (13.6-17.9); Lymphocytes % 24.1 % (15.3-44.8); MCH 34.2 pg (27.0-35.0); MCHC 35.4 g/dL (32.0-36.0); MCV 96.5 fL (80-100); MPV 8.4 fL (7.6-11.3); Monocytes % 11.4 % (3.3-12.3); Neutrophils % 61.6 % (41.7-73.7); Nucleated Red Blood Cells % 0.1 % (0-0); Platelets 107 thou/uL (152-406); RBC Red Blood Cell Count 3.15 M/uL (4.33-5.43); Red Cell Distribution Width 14.8 % (12.1-15.2)
[2025-01-01 05:14] LABS: Albumin 2.6 g/dL (3.4-5.0); Albumin/Globulin Ratio 0.5 (1.1-1.8); Anion Gap 10.8 mEq/L (5.0-15.0); Bilirubin Total 0.8 mg/dL (0.2-1.0); Globulin 4.8 g/dL (2.3-3.5); Potassium 3.8 mEq/L (3.5-5.1); Protein, Total 7.4 g/dL (6.4-8.2); Troponin High Sensitivity 37.9 pg/mL (<58.9)
[2025-01-01 05:16] LABS: Thyroid Stimulating Hormone 4.74 uIU/mL (0.358-3.740)
[2025-01-01] MEDS: FUROSEMIDE 20 MG/ 2ML VIAL IV ONE (06:22)
[2025-01-01] MEDS: POTASSIUM CL SA 10 MEQ TAB PO ONE (06:22)
[2025-01-01] MEDS ORDERED: FUROSEMIDE 20 MG/ 2ML VIAL ONE (06:58)
[2025-01-01] MEDS ORDERED: POTASSIUM CL SA 10 MEQ TAB PO ONE (06:59)
[2025-01-01] MEDS: PNEUMOCOCCAL VACCINE 0.5 ML IMVAC ONE (07:00)
[2025-01-01 07:07] VITALS: BP 124/69
[2025-01-01 07:39] VITALS: O2SAT 97
[2025-01-01] MEDS ORDERED: TAMSULOSIN 0.4 MG SR CAP PO SCH (09:00)
[2025-01-01] MEDS ORDERED: FINASTERIDE 5 MG TAB PO SCH (09:00)
[2025-01-01] MEDS ORDERED: METOPROLOL XL 25 MG TAB PO SCH (09:00)
[2025-01-01] MEDS ORDERED: FUROSEMIDE 20 MG/ 2ML VIAL IV SCH (09:00)
--- NOTE | 2025-01-01 12:19 | EKG ---
Test Date: 2024-12-31 Test Time: 13:50:57 Channel Opener: BP MEASUREMENT RESULTS: Intervals: Rate: 59 WV: 226 QRSD: 150 QT: 504 QTc: 498 [place]: P: 44 WV: 226 QRS: 152 T: 75 INTERPRETIVE STATEMENTS: Sinus bradycardia with 1st degree AV block Right axis deviation Nonspecific intraventricular block Abnormal ECG Compared to ECG 07/19/2024 09:31:43 First degree AV block now present Right-axis deviation now present Left-axis deviation no longer present Left bundle-branch block no longer present Electronically Signed On 01-01-25 12:17:23 CDT by Brian Ortega
--- NOTE | 2025-01-02 06:31 | SS ---
Date of Discharge: 01/01/2025 Chief Complaint: Shortness of breath and weight gain. History Of Present Illness: Mr. Portillo is a pleasant 84-year-old male patient who came into emerg ency room with about 2 weeks history of shortness of breath with activity and in last few days he has noted some shortness of breath at nighttime while he is lying down and feels better when he is sitti ng upright or keeping his upper body elevated in the bed. He also feels like he gained few pounds we ight without necessarily eating too much and felt like his pants were little tighter than usual. Wit h all these complaints, he came to emergency room, was evaluated in the emergency room last night, an d was admitted to the hospital with congestive heart failure problem. After ER physician contacted abraham tomlinson, one dose of Lasix 20 mg IV was given. He has diuresed very well, and overnight his symptoms have improved. This morning, he denies any complaints. No chest pain. Allergies: NO KNOWN ALLERGIES. Medications: Eliquis 5 mg 2 times a day, atorvastatin 40 mg daily, Farxiga 5 mg daily, Senokot-S 2 t ablets daily, finasteride 5 mg daily, tamsulosin 0.4 mg daily, metoprolol succinate 25 mg daily, Nitr ostat p.r.n., iron tablet 65 mg daily, fluticasone nasal spray 1 spray each nostril 2 times a day as needed for allergies. Review of Systems: Cardiovascular: As mentioned above. Respiratory: As mentioned above. Constitutional: As mentioned above. All other systems reviewed and negative. Past Medical History: Significant for allergic rhinitis; hypothyroidism; type 2 diabetes mellitus; h ypertension; hyperlipidemia; coronary artery disease with history of myocardial infarction, January 31, 2012 and non-STEMI, August 02, 2019; atrial fibrillation; diverticulosis; benign prostatic hypertro phy with elevated PSA; osteoarthritis at multiple sites; and anemia problem. Recently, the patient w as noted to have abnormal protein level with abnormal serum protein on immunoelectrophoresis, and he has appointment to see Dr. Ko next month for further evaluation of that. Past Surgical History: Cataract surgery, tracheostomy, coronary artery stent placement, left inguina l hernia surgery, left hip surgery. Family History: Father , had myocardial infarction. Mother had coronary artery disease and diab etes. Brother , committed suicide. Sister, details unknown. Social History: Negative for smoking. Use of alcohol, occasional. Physical Examination: Vital Signs: Temperature 97.2, pulse 63, respiratory rate 16, blood pressure 130/82, oxygen saturati on 97% on room air. Height 6 feet 1 inch, weight 211 pounds. General: Awake, alert, oriented, not in distress. HEENT: Head atraumatic, normocephalic. Conjunctivae nonerythematous. Sclerae white. Mouth, no thr ush or edema noted. Ears/Nose, no mass, lesion, discharge noted. Neck: Supple. No JVD, lymph nodes, bruit, thyromegaly noted. Lungs: Bilateral good equal air entry. Clear to auscultation. No rhonchi. No rales. Heart: Normal heart sounds, no murmur or gallop. Abdomen: Soft, bowel sounds normal. No guarding, rigidity, tenderness, mass, hepatosplenomegaly, dis tention, or bruit noted. Extremities: No leg edema. No calf tenderness. Skin: No rash, ulcer, cellulitis. Lymphatics: No lymph node enlargement in neck, supraclavicular, infraclavicular region. Neuro: No focal neurological deficit. Chest: Unremarkable. External Genitalia: Deferred. Rectal: Deferred. Laboratory Data: Chest x-ray shows pulmonary vascular congestion changes, large hiatal hernia, cardi omegaly. CAT scan of the abdomen and pelvis shows large hiatal hernia with evidence of chronic volvu melani, gallbladder wall appears to be slightly thickened with gallstone, small bilateral pleural effusi ons, renal cyst, and enlarged prostate. It is important to note that the patient has no abdominal pa in, specifically no right upper quadrant pain and his abdominal exam is unremarkable. No tenderness also. WBC 6.8, hemoglobin 11, platelets 119. Sodium 139, potassium 4.1, chloride 111, bicarb 23, BU N 20, creatinine 1.16, glucose 127. AST 40, ALT 63. Troponin 38. ProBNP 10,935. Lipase 33. EKG _ . Hospital Course: After the patient was evaluated in the emergency room, I was contacted requesting a dmission to the hospital. The patient was admitted to the hospital with congestive heart failure and his outpatient echocardiogram done with his paint sprayer sandblaster, Dr. Brown, about 2 months ago has shown e jection fraction of 35% to 40% and he sees paint sprayer sandblaster regularly. After his overnight diuretic ther apy, his symptoms have improved. There is no need for ongoing hospitalization, so I did communicate with him regarding adding some treatment for congestive heart failure and to have a close followup on outpatient basis to start with. Second dose of 20 mg IV Lasix was ordered to be given this morning, as I communicated with the nurse in the emergency room as the patient was still in the emergency estefani m when I saw him, waiting for his bed assignment. After the second dose of Lasix this morning, decis ion was made to discharge the patient to go home with following discharge medications and instruction s. Final Diagnoses: 1. Congestive heart failure, chronic, systolic, with acute exacerbation. 2. Coronary artery disease. 3. Paroxysmal atrial fibrillation. 4. Hypertension. 5. Hyperlipidemia. 6. Type 2 diabetes mellitus. 7. Hypothyroidism. 8. Allergic rhinitis. 9. Benign prostatic hypertrophy. 10. Elevated PSA. 11. Anemia, unspecified. 12. Thrombocytopenia. Discharge Medications And Instructions: 1. Continue all prior home medication except start following new medications, and prescription was se nt to his pharmacy from my office. 2. Furosemide 40 mg take 1 tablet by mouth daily in morning, starting tomorrow. 3. Potassium chloride 20 mEq take 1 tablet by mouth daily, starting tomorrow. 4. Entresto 24/26 mg take 1 tablet by mouth 2 times a day. 5. Follow up at my office next week. 6. Follow up with paint sprayer sandblaster in 2 weeks. Total time spent 35 minutes, including communication with the emergency room physician, review of omari rgency room visit record, performing today's evaluation and management, review of outpatient record i ncluding last echocardiogram and last office visit note from 10/10/2024. RODERICK/MODL Voice ID: [id number] Report ID: [id number]
== END 2025-01-01 07:24 | disposition home or self-care (01) ==
LOC: ER 13:06 → ERHOLD 16:49 → INTOOBSV 16:49
PROVIDERS: ADMIT Internal Medicine; ATTEND Internal Medicine
DX: I50.23 Acute on chronic systolic (congestive) heart failure (principal); R06.02 Shortness of breath; E03.9 Hypothyroidism, unspecified; E11.9 Type 2 diabetes mellitus without complications; I10 Essential (primary) hypertension; E78.5 Hyperlipidemia, unspecified; I25.2 Old myocardial infarction; I25.10 Atherosclerotic heart disease of native coronary artery without angina pectoris; N40.0 Benign prostatic hyperplasia without lower urinary tract symptoms; M19.90 Unspecified osteoarthritis, unspecified site; D64.9 Anemia, unspecified; I48.21 Permanent atrial fibrillation; D69.6 Thrombocytopenia, unspecified; R97.20 Elevated prostate specific antigen [PSA]; J30.9 Allergic rhinitis, unspecified; J81.0 Acute pulmonary edema; R10.9 Unspecified abdominal pain
CPT/HCPCS: 93005; 85025 ×2; 80048; 36415; 80076; 84443; 84484 ×2; 84439; 83690; 80053; 83880; 74177; 71045; 96374; 99285; Q9967; J1938 ×2; G0378 ×3